=== PATIENT | female | born 1945 | race Caucasian/White ===

== ENCOUNTER 2018-05-16 20:24 | Emergency (ER) | payer BC, OTHER ==
[2018-05-16] MEDS ORDERED: METOCLOPRAMIDE 10 MG/2mL INJ ONE ×2 (21:23→21:46)
[2018-05-16] MEDS ORDERED: DIPHENHYDRAMINE 50 MG/ML VIAL ONE ×2 (21:23→21:46)
[2018-05-16] MEDS ORDERED: KETOROLAC 30 MG/ML INJ ONE (21:23)
--- NOTE | 2018-05-16 21:41 | RAD REPORT ---
EXAM DESCRIPTION: CT - Head Brain Wo Cont - 05/16/2018 9:36 pm CLINICAL HISTORY: Severe headache, photophobia COMPARISON: None. TECHNIQUE: Axial 5 mm thick images of the head were obtained without IV contrast. All CT scans are performed using dose optimization technique as appropriate and may include automated exposure control or mA/KV adjustment according to patient size. FINDINGS: No intracranial hemorrhage, mass, edema or shift of mid-line structures. No acute infarcti on changes seen. No abnormal extra-axial fluid collections. Ventricles are normal. Mastoid air cells and visualized portions of the paranasal sinuses are clear. No acute bony findings. IMPRESSION: Negative non-contrast CT head examination.
[2018-05-16] MEDS ORDERED: ONDANSETRON 4 MG/2 ML VIAL ONE (22:52)
[2018-05-16] MEDS ORDERED: FENTANYL CITR 100 MCG/2 ML ONE (22:52)
[2018-05-16] MEDS ORDERED: NA CHLORIDE 0.9% 1,000 ML ONE (23:02)
[2018-05-16] MEDS ORDERED: DEXAMETHASONE 10 MG/ML VIAL ONE (23:07)
[2018-05-16 23:25] LABS: Absolute Lymphocytes (CBC) 2.1 K/uL (0.7-4.9); Absolute Monocytes 0.8 K/uL (0.1-1.3); Absolute Neutrophil 4.6 K/uL (1.8-8.0); Basophils % 1.3 % (0-1.3); Eosinophils % 3.5 % (0-4.4); Hematocrit 35.3 % (36.0-45.0); Lymphocytes % 26.4 % (15.3-44.8); MCH 28.6 pg (27.0-35.0); MCV 85.6 fL (80-100); MPV 9.6 fL (7.6-11.3); RBC Red Blood Cell Count 4.13 M/uL (3.86-4.86)
[2018-05-16 23:39] LABS: BUN Blood Urea Nitrogen 17 mg/dL (7-18); Bicarbonate 24 mmol/L (21-32); C-Reactive Protein < 2.90 mg/L (<3.00); Glucose Level 88 mg/dL (74-106); Potassium 3.3 mmol/L (3.5-5.1); Sodium Level 135 mmol/L (136-145)
--- NOTE | 2018-05-17 02:11 | ER ---
Nurse's Notes [facility] Name: Stefany Guillen Age: 72 yrs Sex: Female : 1945 Arrival Date: 05/16/2018 Time: 20:29 Bed 28 Private MD: Diagnosis: Headache Presentation: 05/16 20:30 Presenting complaint: Patient states: Migraine headache, chills, photosensitivity- mb3 started aprox 2 to 3 hours ago, took her excedrin migraine and her cozaar within the last hour. Now states headache at 5/10 scale. Transition of care: patient was not received from another setting of care. Onset of symptoms was May 16, 2018 at 18:00. Risk Assessment: Do you want to hurt yourself or someone else? Patient reports no desire to harm self or others. Initial Sepsis Screen: Does the patient meet any 2 criteria? No. Patient's initial sepsis screen is negative. Does the patient have a suspected source of infection? No. Patient's initial sepsis screen is negative. Care prior to arrival: IV initiated. 20 GA, in the right antecubital area, Glucose check: 115. 20:30 Method Of Arrival: EMS: [facility] mb3 20:30 Acuity: HARJINDER 3 mb3 Triage Assessment: 20:35 Headache History: The patient has had previous headaches and this one is similar to mb3 previous episodes, and this one is more severe than previous episodes. General: Appears uncomfortable, well groomed, Behavior is cooperative, appropriate for age, anxious. Pain: Complains of pain in occipital area, left side of the back of head and right side of the back of head Pain does not radiate. Pain currently is 10 out of 10 on a pain scale. Pain began 2 hours ago. Pain: Also complains of photophobia, chills. EENT: No deficits noted. No signs and/or symptoms were reported regarding the EENT system. Neuro: Level of Consciousness is awake, alert, obeys commands, Oriented to person, place, time, situation, Appropriate for age. Cardiovascular: No deficits noted. Denies chest pain, Heart tones present Capillary refill < 3 seconds Patient's skin is warm and dry. Respiratory: Airway is patent Respiratory effort is even, unlabored, Respiratory pattern is regular, symmetrical, Breath sounds are clear bilaterally. GI: No deficits noted. No signs and/or symptoms were reported involving the gastrointestinal system. : No deficits noted. No signs and/or symptoms were reported regarding the genitourinary system. Musculoskeletal: No deficits noted. No signs and/or symptoms reported regarding the musculoskeletal system. Historical: - Allergies: 20:34 Amoxicillin; mb3 20:34 Sulfa (Sulfonamide Antibiotics); mb3 - Immunization history:: Adult Immunizations up to date. - Social history:: Smoking status: Patient/guardian denies using tobacco, never smoked. - Ebola Screening: : Patient denies travel to an Ebola-affected area in the 21 days before illness onset No symptoms or risks identified at this time. Screenin/22 00:44 Abuse screen: Denies threats or abuse. Nutritional screening: No deficits noted. mb3 Tuberculosis screening: No symptoms or risk factors identified. Fall Risk None identified. Assessment: 05/16 23:17 Reassessment: see triage assessment. General: Appears distressed, uncomfortable. Pain: mb3 Complains of pain in left parietal area, right parietal area and occipital area. 05/17 00:44 Reassessment: Patient appears in no apparent distress at this time. Patient and/or mb3 family updated on plan of care and expected duration. Pain level reassessed. Patient is alert, oriented x 3, equal unlabored respirations, skin warm/dry/pink. Patient states feeling better. Patient states symptoms have improved. Vital Signs: 05/16 20:34 BP 173 / 68; Pulse 74; Resp 24; Temp 97.6(O); Pulse Ox 97% on R/A; Weight 80.29 kg; 3 Height 5 ft. 2 in. (157.48 cm); Pain 10/10; 21:55 BP 159 / 83; Pulse 57; Resp 19; Pulse Ox 95% on R/A; mt 22:32 BP 161 / 87; Pulse 59; Resp 18; Pulse Ox 98% on R/A; mt 23:21 BP 144 / 68; Pulse 64; Resp 16; Pulse Ox 100% ; mb3 05/17 00:44 BP 137 / 62; Pulse 67; Resp 18; Pulse Ox 92% on R/A; mb3 05/16 20:34 Body Mass Index 32.37 (80.29 kg, 157.48 cm) 3 NIH Stroke Scale Scores: 02:07 NIHSS Score: 0 gs ED Course: 05/16 20:29 Patient arrived in ED. mb3 20:30 Gokul Mccoy, RN is Primary Nurse. mb3 20:33 Triage completed. mb3 21:05 Reilly Sorenson MD is Attending Physician. gs 21:[address] vr 21:30 Maintain EMS IV. Dressing intact. Site clean \T\ dry. Flushed right antecubital. mb3 21:35 CT completed. Patient tolerated procedure well. Patient moved back from CT. nj 21:36 CT Head Brain wo Cont In Process Unspecified. EDMS 22:42 Radiology exam delayed due to lab results not completed at this time. (BUN/Creatinine). nj 05/17 00:14 Head angio In Process Unspecified. EDMS 01:08 CT completed. Patient tolerated procedure well. Patient moved to CT via stretcher. Patient moved back from CT. 02:10 Jordi Garcia MD is Referral Physician. gs 02:32 Arm band placed on right wrist. mb3 02:34 No provider procedures requiring assistance completed. IV discontinued, intact, mb3 bleeding controlled, No redness/swelling at site. Pressure dressing applied. 02:35 Patient has correct armband on for positive identification. Placed in gown. Bed in low mb3 position. Call light in reach. Side rails up X 1. dust operator on. Pulse ox on. NIBP on. Administered Medications: 05/16 21:27 Drug: Reglan 5 mg Route: IVP; Site: right antecubital; mb3 23:03 Follow up: Response: No adverse reaction mb3 21:27 Drug: Benadryl 12.5 mg Route: IVP; Site: right antecubital; mb3 23:03 Follow up: Response: No adverse reaction mb3 21:27 Drug: TORadol 15 mg Route: IVP; Site: right antecubital; mb3 23:03 Follow up: Response: No adverse reaction mb3 21:44 Drug: Reglan 5 mg Route: IVP; Site: right antecubital; mb3 23:03 Follow up: Response: No adverse reaction mb3 21:44 Drug: Benadryl 12.5 mg Route: IVP; Site: right antecubital; mb3 23:04 Follow up: Response: No adverse reaction mb3 22:42 Drug: Zofran 4 mg Route: IVP; Site: right antecubital; mb3 05/17 02:32 Follow up: Response: No adverse reaction 3 05/16 22:42 Drug: fentaNYL (PF) 25 mcg Route: IVP; Site: right antecubital; mb3 05/17 02:32 Follow up: Response: No adverse reaction 3 05/16 23:04 Drug: NS 0.9% 750 ml Route: IV; Rate: 1 bolus; Site: right antecubital; mb3 05/17 02:31 Follow up: Response: No adverse reaction; IV Status: Completed infusion; IV Intake: mb3 750ml 05/16 23:09 Drug: Decadron - Dexamethasone 10 mg Route: IVP; Site: right antecubital; mb3 05/17 02:31 Follow up: Response: No adverse reaction mb3 Intake: 02:31 IV: 750ml; Total: 750ml. mb3 Outcome: 02:11 Discharge ordered by MD. 02:32 Discharged to home via wheelchair, with family. mb3 02:32 Condition: stable 02:32 Discharge instructions given to patient, family, Instructed on discharge instructions, follow up and referral plans. medication usage, Demonstrated understanding of instructions, follow-up care, medications, Prescriptions given X 2. 02:35 Patient left the ED. mb3 NIH Stroke Scale - NIH Stroke Score Date: 05/17/2018 Time: 02:07 Total Score = 0 1a. Level of Consciousness (LOC) - 0(Alert) 1b. Level of Consciousness (LOC) (Year \T\ Age) - 0(Both) 1c. LOC Commands (Open \T\ Closes Eyes/Diamond Driller Helper) - 0(Both) 2. Best Gaze (Lateral Gaze Paresis) - 0(Normal) 3. Visual Field Loss - 0(No visual loss) 4. Facial Palsy - 0(Normal) 5a. Left Arm: Motor (10-second hold) - 0(No drift) 5b. Right Arm: Motor (10-second hold) - 0(No drift) 6a. Left Leg: Motor (5-second hold - always test supine) - 0(No drift) 6b. Right Leg: Motor (5-second hold - always test supine) - 0(No drift) 7. Limb Ataxia (finger/nose \T\ heel/goldman - test with eyes open) - 0(Absent) 8. Sensory Loss (pinprick arms/legs/face) - 0(Normal) 9. Best Language: Aphasia (description/naming/reading) - 0(No aphasia) 10. Dysarthria (speech clarity - read or repeat words) - 0(Normal) 11. Extinction and Inattention (visual/tactile/auditory/spatial/personal) - 0(No abnormality) Initials: Signatures: Dispatcher [employer] Adrian Valencia, Randee Pritchard, Pascual Taylor, Reilly Mccormick mt, MD MD Gokul Mccoy RN RN mb3
--- NOTE | 2018-05-17 02:12 | EDPHYS ---
Physician Documentation [facility] Name: Stefany Guillen Age: 72 yrs Sex: Female : 1945 Arrival Date: 05/16/2018 Time: 20:29 Bed 28 Private MD: ED Physician Reilly Sorenson HPI: 05/17 02:07 This 72 yrs old Female presents to ER via EMS with complaints of Headache > gs 24hrs Old. 02:07 The patient complains of pain to the left occipital area. The patient describes the gs headache as pounding, sharp. Onset: The symptoms/episode began/occurred gradually. Associated signs and symptoms: Pertinent positives: nausea. Severity of symptoms: At its worst the pain was incapacitating, "never this severe". Headache History: The patient has had previous headaches and this one is similar to previous episodes, and this one is more severe than previous episodes. The symptoms are alleviated by nothing. the symptoms are aggravated by nothing. The patient has experienced similar episodes in the past, a few times. Historical: - Allergies: 05/16 20:34 Amoxicillin; mb3 20:34 Sulfa (Sulfonamide Antibiotics); mb3 - Immunization history:: Adult Immunizations up to date. - Social history:: Smoking status: Patient/guardian denies using tobacco, never smoked. - Ebola Screening: : Patient denies travel to an Ebola-affected area in the 21 days before illness onset No symptoms or risks identified at this time. ROS: 05/17 02:07 All other systems are negative. gs Exam: 02:07 Head/Face: Normocephalic, atraumatic. Eyes: Pupils equal round and reactive to light, gs extra-ocular motions intact. Lids and lashes normal. Conjunctiva and sclera are non-icteric and not injected. Cornea within normal limits. Periorbital areas with no swelling, redness, or edema. ENT: Nares patent. No nasal discharge, no septal abnormalities noted. Tympanic membranes are normal and external auditory canals are clear. Oropharynx with no redness, swelling, or masses, exudates, or evidence of obstruction, uvula midline. Mucous membranes moist. Neck: Trachea midline, no thyromegaly or masses palpated, and no cervical lymphadenopathy. Supple, full range of motion without nuchal rigidity, or vertebral point tenderness. No Meningismus. Chest/axilla: Normal chest wall appearance and motion. Nontender with no deformity. No lesions are appreciated. Cardiovascular: Regular rate and rhythm with a normal S1 and S2. No gallops, murmurs, or rubs. Normal PMI, no JVD. No pulse deficits. Respiratory: Lungs have equal breath sounds bilaterally, clear to auscultation and percussion. No rales, rhonchi or wheezes noted. No increased work of breathing, no retractions or nasal flaring. Abdomen/GI: Soft, non-tender, with normal bowel sounds. No distension or tympany. No guarding or rebound. No evidence of tenderness throughout. Back: No spinal tenderness. No costovertebral tenderness. Full range of motion. Skin: Warm, dry with normal turgor. Normal color with no rashes, no lesions, and no evidence of cellulitis. MS/ Extremity: Pulses equal, no cyanosis. Neurovascular intact. Full, normal range of motion. 02:07 Constitutional: The patient appears alert, awake, uncomfortable. 02:07 Neuro: Orientation: is normal, Mentation: is normal, Memory: is normal, Cranial nerves: grossly normal, Cerebellar function: normal finger to nose testing, Motor: moves all fours, strength is normal, Sensation: no acute changes. Vital Signs: 05/16 20:34 BP 173 / 68; Pulse 74; Resp 24; Temp 97.6(O); Pulse Ox 97% on R/A; Weight 80.29 kg; mb3 Height 5 ft. 2 in. (157.48 cm); Pain 10/10; 21:55 BP 159 / 83; Pulse 57; Resp 19; Pulse Ox 95% on R/A; mt 22:32 BP 161 / 87; Pulse 59; Resp 18; Pulse Ox 98% on R/A; mt 23:21 BP 144 / 68; Pulse 64; Resp 16; Pulse Ox 100% ; mb3 05/17 00:44 BP 137 / 62; Pulse 67; Resp 18; Pulse Ox 92% on R/A; mb3 05/16 20:34 Body Mass Index 32.37 (80.29 kg, 157.48 cm) mb3 NIH Stroke Scale Scores: 02:07 NIHSS Score: 0 gs MDM: 05/16 21:18 Patient medically screened. 05/17 02:07 Differential diagnosis: hypertensive headache, subarachnoid bleed, tension headache, gs vasomotor headache. Data reviewed: vital signs, nurses notes. Response to treatment: the patient's symptoms have markedly improved after treatment, and as a result, I will discharge patient. ED course: pt concerned about aneurysm requests imaging. 05/16 22:35 Order name: CBC with Diff; Complete Time: 23:40 05/16 22:35 Order name: BMP; Complete Time: 23:40 05/16 21:19 Order name: CT Head Brain wo Cont; Complete Time: 21:42 05/16 22:35 Order name: CRP; Complete Time: 23:40 05/16 22:35 Order name: Head angio EDMS Administered Medications: 05/16 21:27 Drug: Reglan 5 mg Route: IVP; Site: right antecubital; mb3 23:03 Follow up: Response: No adverse reaction mb3 21:27 Drug: Benadryl 12.5 mg Route: IVP; Site: right antecubital; mb3 23:03 Follow up: Response: No adverse reaction mb3 21:27 Drug: TORadol 15 mg Route: IVP; Site: right antecubital; mb3 23:03 Follow up: Response: No adverse reaction mb3 21:44 Drug: Reglan 5 mg Route: IVP; Site: right antecubital; mb3 23:03 Follow up: Response: No adverse reaction mb3 21:44 Drug: Benadryl 12.5 mg Route: IVP; Site: right antecubital; mb3 23:04 Follow up: Response: No adverse reaction mb3 22:42 Drug: Zofran 4 mg Route: IVP; Site: right antecubital; mb3 05/17 02:32 Follow up: Response: No adverse reaction mb3 05/16 22:42 Drug: fentaNYL (PF) 25 mcg Route: IVP; Site: right antecubital; mb3 05/17 02:32 Follow up: Response: No adverse reaction mb3 05/16 23:04 Drug: NS 0.9% 750 ml Route: IV; Rate: 1 bolus; Site: right antecubital; mb3 05/17 02:31 Follow up: Response: No adverse reaction; IV Status: Completed infusion; IV Intake: mb3 750ml 05/16 23:09 Drug: Decadron - Dexamethasone 10 mg Route: IVP; Site: right antecubital; mb3 05/17 02:31 Follow up: Response: No adverse reaction mb3 Disposition: 05/17/18 02:11 Discharged to Home. Impression: Headache. - Condition is Stable. - Discharge Instructions: General Headache Without Cause. - Prescriptions for Fiorinal 50- 325-40 mg Oral Capsule - take 1 capsule by ORAL route every 4 hours As needed - not to exceed 6 capsules per day; 20 capsule. Prednisone 20 mg Oral Tablet - take 1 tablet by ORAL route once daily for 5 days; 5 tablet. - Medication Reconciliation Form, Thank You Letter, Antibiotic Education, Prescription Opioid Use form. - Follow up: Jordi Garcia MD; When: 2 - 3 days; Reason: Re-evaluation by your physician. NIH Stroke Scale - NIH Stroke Score Date: 05/17/2018 Time: 02:07 Total Score = 0 1a. Level of Consciousness (LOC) - 0(Alert) 1b. Level of Consciousness (LOC) (Year \\T\\ Age) - 0(Both) 1c. LOC Commands (Open \\T\\ Closes Eyes/Grinder Tender) - 0(Both) 2. Best Gaze (Lateral Gaze Paresis) - 0(Normal) 3. Visual Field Loss - 0(No visual loss) 4. Facial Palsy - 0(Normal) 5a. Left Arm: Motor (10-second hold) - 0(No drift) 5b. Right Arm: Motor (10-second hold) - 0(No drift) 6a. Left Leg: Motor (5-second hold - always test supine) - 0(No drift) 6b. Right Leg: Motor (5-second hold - always test supine) - 0(No drift) 7. Limb Ataxia (finger/nose \\T\\ heel/goldman - test with eyes open) - 0(Absent) 8. Sensory Loss (pinprick arms/legs/face) - 0(Normal) 9. Best Language: Aphasia (description/naming/reading) - 0(No aphasia) 10. Dysarthria (speech clarity - read or repeat words) - 0(Normal) 11. Extinction and Inattention (visual/tactile/auditory/spatial/personal) - 0(No abnormality) Initials: Signatures: Dispatcher [employer] Reilly Calderón MD MD Mccoy, Gokul, RN RN mb3 Corrections: (The following items were deleted from the chart) 02:35 02:11 05/17/2018 02:11 Discharged to Home. Impression: Headache. Condition is mb3 Stable. Forms are Medication Reconciliation Form, Thank You Letter, Antibiotic Education, Prescription Opioid Use. Follow up: Jordi Garcia; When: 2 - 3 days; Reason: Re-evaluation by your physician. gs
--- NOTE | 2018-05-17 10:20 | RAD REPORT ---
EXAM DESCRIPTION: CTHead angio05/17/2018 4:27 am CLINICAL HISTORY: Visual disturbance COMPARISON: Head CT May 16, 2018 TECHNIQUE: CT angiogram of the head was obtained. 50 cc Isovue 370 was intravenously. Coronal and sa gittal reconstruction was performed. MIP 3D reconstruction was performed All CT scans are performed using dose optimization technique as appropriate and may include automated exposure control or mA/KV adjustment according to patient size. FINDINGS: The basilar, internal carotid, anterior cerebral, middle cerebral and posterior cerebral a rteries are normal caliber. An aneurysm is not seen. Mild atherosclerotic disease involves the distal internal carotid arteries A significant stenosis is not noted. IMPRESSION: Unremarkable CT angiogram head.
== END 2018-05-17 02:35 | disposition home or self-care (01) ==
LOC: ER 20:24
DX: R51 Headache (principal); Z88.1 Allergy status to other antibiotic agents; Z88.2 Allergy status to sulfonamides
CPT/HCPCS: 36415; 70450; 70496; 80048; 85025; 86140; 96361; 96374; 96375; 99285; J1100; J2405; J2765 ×2; J3010; J7030; Q9967

== ENCOUNTER 2019-11-04 16:52 | Emergency (ER) | payer OTHER ==
--- NOTE | 2019-11-04 17:53 | RAD REPORT ---
EXAM DESCRIPTION: CT - Head C Spine Mpr Wo Con - 11/04/2019 5:23 pm CLINICAL HISTORY: Head and neck injury status post fall. Head and neck pain COMPARISON: 2018 TECHNIQUE: Computed axial tomography of the head and cervical spine was obtained. Sagittal and coronal reconstruction was performed. All CT scans are performed using dose optimization technique as appropriate and may include automated exposure control or mA/KV adjustment according to patient size. FINDINGS: Right frontal scalp hematoma. No underlying fracture. An intracranial bleed is not seen. The ventricles are normal in caliber. An extra-axial fluid collect ion is not noted.Fluid within the visualized sinuses and mastoids is not seen A cervical fracture is not visualized. No dislocation is noted. Spondylosis involves the cervical spi ne IMPRESSION: No acute intracranial abnormality is seen. A cervical fracture is not visualized. If the patient continues to have symptoms to suggest intracra nial /spinal cord pathology then MRI would be recommended
--- NOTE | 2019-11-04 17:56 | ER ---
Nurse's Notes [facility] Name: Stefany Guillen Age: 74 yrs Sex: Female : 1945 Arrival Date: 11/04/2019 Time: 16:55 Bed 17 Private MD: Diagnosis: Fall (on) (from) unspecified stairs and steps;Superficial injury of head Presentation: 11/04 16:55 Presenting complaint: EMS states: pt was standing on 3 step ladder, lost her balance, tw2 fell off and landed on her bottom first then slammed the back of her head into the ground, denies LOC, pt is not on blood thinners, vs stable. Transition of care: patient was not received from another setting of care. Onset of symptoms was November 04, 2019. Risk Assessment: Do you want to hurt yourself or someone else? Patient reports no desire to harm self or others. Initial Sepsis Screen: Does the patient meet any 2 criteria? No. Patient's initial sepsis screen is negative. Does the patient have a suspected source of infection? No. Patient's initial sepsis screen is negative. Care prior to arrival: None. 16:55 Method Of Arrival: EMS: [facility] tw2 16:55 Acuity: HARJINDER 4 tw2 Triage Assessment: 16:55 General: Appears in no apparent distress. obese, well groomed, Behavior is calm, tw2 cooperative, appropriate for age. Pain: Complains of pain in right occipital area and scalp. Historical: - Allergies: 17:02 Amoxicillin; tw2 17:02 Sulfa (Sulfonamide Antibiotics); tw2 - Immunization history:: Adult Immunizations. - Social history:: Smoking status: . - Ebola Screening: : Patient denies travel to an Ebola-affected area in the 21 days before illness onset. Screenin:04 Abuse screen: Denies threats or abuse. Nutritional screening: No deficits noted. tw2 Tuberculosis screening: No symptoms or risk factors identified. Fall Risk Secondary diagnosis (15 points) impaired mobility. Assessment: 18:20 General: Appears uncomfortable, Behavior is calm, cooperative, appropriate for age. tr5 Pain: Complains of pain in scalp. Neuro: Level of Consciousness is awake, alert, obeys commands, Oriented to person, place, time, Ice Skating Teacher are equal bilaterally Moves all extremities. Cardiovascular: Heart tones present Capillary refill < 3 seconds Pulses are all present. Respiratory: Airway is patent Respiratory effort is even, unlabored, Respiratory pattern is regular, symmetrical. GI: No signs and/or symptoms were reported involving the gastrointestinal system. : No signs and/or symptoms were reported regarding the genitourinary system. EENT: No signs and/or symptoms were reported regarding the EENT system. Derm: No signs and/or symptoms reported regarding the dermatologic system. Musculoskeletal: No signs and/or symptoms reported regarding the musculoskeletal system. Vital Signs: 17:01 BP 156 / 84; Pulse 66; Resp 17; Temp 98.1(O); Pulse Ox 99% on R/A; Weight 90.72 kg (R); tw2 Pain 8/10; 17:56 BP 139 / 66; Pulse 63; Resp 17; Temp 97.9(O); Pulse Ox 97% on R/A; mh5 ED Course: 16:55 Patient arrived in ED. kb 16:55 [facility] kb 16:55 Gerber Zamarripa MD is Attending Physician. kb 16:55 Bed in low position. Call light in reach. tw2 17:00 Triage completed. tw2 17:00 Arm band placed on. tw2 17:23 CT Head C Spine In Process Unspecified. EDMS 18:09 Kareem Mckeon, HEBERT is Primary Nurse. tr5 18:23 No provider procedures requiring assistance completed. Patient did not have IV access tr5 during this emergency room visit. Administered Medications: 18:22 Drug: Ibuprofen 800 mg Route: PO; tr5 Outcome: 17:56 Discharge ordered by MD. kb 18:23 Discharged to home ambulatory. tr5 18:23 Condition: stable 18:23 Discharge instructions given to patient, Instructed on discharge instructions, follow up and referral plans. Demonstrated understanding of instructions, follow-up care. 18:32 Patient left the ED. tr5 Signatures: Dispatcher [employer] EDMS Marj Uriostegui FNP-C FNP-Ckb Wise, Tara RN RN tw2 Ninfa Palmer Kareem Antunez RN RN tr5 Corrections: (The following items were deleted from the chart) 18:11 17:56 Pulse 63bpm; Resp 17bpm; Pulse Ox 97% RA; Temp 97.9F Oral; mh5 mh5
--- NOTE | 2019-11-04 17:56 | EDPHYS ---
Physician Documentation [facility] Name: Stefany Guillen Age: 74 yrs Sex: Female : 1945 Arrival Date: 11/04/2019 Time: 16:55 Bed 17 Private MD: ED Physician Gerber Zamarripa HPI: 11/04 16:58 This 74 yrs old Female presents to ER via Unassigned with complaints of fall, kb head injury. 16:58 Details of fall: The patient fell from a height, step stool. Onset: The kb symptoms/episode began/occurred just prior to arrival. Associated injuries: The patient sustained injury to the head, hematoma, pain. Severity of symptoms: At their worst the symptoms were moderate, in the emergency department the symptoms are unchanged. The patient has not experienced similar symptoms in the past. The patient has not recently seen a physician. 16:59 Pt reports she fell from step stool onto buttocks and hit the back of her head. Denies kb LOC. Reports pain in head only. Denies hip pain, tailbone pain. Moves all extremities without difficulty. Historical: - Allergies: 17:02 Amoxicillin; tw2 17:02 Sulfa (Sulfonamide Antibiotics); tw2 - Immunization history:: Adult Immunizations. - Social history:: Smoking status: . - Ebola Screening: : Patient denies travel to an Ebola-affected area in the 21 days before illness onset. ROS: 16:57 Constitutional: Negative for fever, chills, and weight loss, Eyes: Negative for injury, kb pain, redness, and discharge, ENT: Negative for injury, pain, and discharge, Neck: Negative for injury, pain, and swelling, Cardiovascular: Negative for chest pain, palpitations, and edema, Respiratory: Negative for shortness of breath, cough, wheezing, and pleuritic chest pain, Abdomen/GI: Negative for abdominal pain, nausea, vomiting, diarrhea, and constipation, Back: Negative for injury and pain, : Negative for injury, bleeding, discharge, and swelling, MS/Extremity: Negative for injury and deformity. 16:57 Skin: Positive for hematoma, of the scalp. 16:57 Neuro: Positive for headache. Exam: 16:57 Constitutional: This is a well developed, well nourished patient who is awake, alert, kb and in no acute distress. Eyes: Pupils equal round and reactive to light, extra-ocular motions intact. Lids and lashes normal. Conjunctiva and sclera are non-icteric and not injected. Cornea within normal limits. Periorbital areas with no swelling, redness, or edema. ENT: Nares patent. No nasal discharge, no septal abnormalities noted. Tympanic membranes are normal and external auditory canals are clear. Oropharynx with no redness, swelling, or masses, exudates, or evidence of obstruction, uvula midline. Mucous membranes moist. Neck: Trachea midline, no thyromegaly or masses palpated, and no cervical lymphadenopathy. Supple, full range of motion without nuchal rigidity, or vertebral point tenderness. No Meningismus. Chest/axilla: Normal chest wall appearance and motion. Nontender with no deformity. No lesions are appreciated. Cardiovascular: Regular rate and rhythm with a normal S1 and S2. No gallops, murmurs, or rubs. Normal PMI, no JVD. No pulse deficits. Respiratory: Lungs have equal breath sounds bilaterally, clear to auscultation and percussion. No rales, rhonchi or wheezes noted. No increased work of breathing, no retractions or nasal flaring. Abdomen/GI: Soft, non-tender, with normal bowel sounds. No distension or tympany. No guarding or rebound. No evidence of tenderness throughout. Back: No spinal tenderness. No costovertebral tenderness. Full range of motion. Skin: Warm, dry with normal turgor. Normal color with no rashes, no lesions, and no evidence of cellulitis. MS/ Extremity: Pulses equal, no cyanosis. Neurovascular intact. Full, normal range of motion. Neuro: Awake and alert, GCS 15, oriented to person, place, time, and situation. Cranial nerves II-XII grossly intact. Motor strength 5/5 in all extremities. Sensory grossly intact. Cerebellar exam normal. Normal gait. 16:57 Head/face: Noted is no obvious of injury or deformity except hematoma, that is moderate, of the right occipital area. Vital Signs: 17:01 BP 156 / 84; Pulse 66; Resp 17; Temp 98.1(O); Pulse Ox 99% on R/A; Weight 90.72 kg (R); tw2 Pain 8/10; 17:56 BP 139 / 66; Pulse 63; Resp 17; Temp 97.9(O); Pulse Ox 97% on R/A; mh5 MDM: 16:55 Patient medically screened. kb 16:57 Data reviewed: vital signs, nurses notes. Data interpreted: Pulse oximetry: on room air kb is 100 %. Interpretation: normal. 17:55 Counseling: I had a detailed discussion with the patient and/or guardian regarding: the kb historical points, exam findings, and any diagnostic results supporting the discharge/admit diagnosis, radiology results, the need for outpatient follow up, a family practitioner, to return to the emergency department if symptoms worsen or persist or if there are any questions or concerns that arise at home. 11/04 16:56 Order name: CT Head C Spine; Complete Time: 17:56 kb Administered Medications: 18:22 Drug: Ibuprofen 800 mg Route: PO; tr5 Disposition: 18:36 Co-signature as Attending Physician, Gerber Zamarripa MD. rn Disposition: 11/04/19 17:56 Discharged to Home. Impression: Fall (on) (from) unspecified stairs and steps, Superficial injury of head. - Condition is Stable. - Discharge Instructions: Hematoma, [id number], Head Injury, Adult, [id number]. - Medication Reconciliation Form, Thank You Letter, Antibiotic Education, Prescription Opioid Use form. - Follow up: Emergency Department; When: As needed; Reason: Worsening of condition. Follow up: Private Physician; When: 2 - 3 days; Reason: Recheck today's complaints, Continuance of care, Re-evaluation by your physician. Signatures: Dispatcher [employer] EDAL Marj Uriostegui, COMMUNICATIONS SYSTEMS ENGINEER-C COMMUNICATIONS SYSTEMS ENGINEER-Ckb Gerber Zamarripa MD MD rn Wise, Tara, RN RN 2 Kareem Mckeon RN RN tr5 Corrections: (The following items were deleted from the chart) 18:32 17:56 11/04/2019 17:56 Discharged to Home. Impression: Fall (on) (from) unspecified tr5 stairs and steps; Superficial injury of head. Condition is Stable. Forms are Medication Reconciliation Form, Thank You Letter, Antibiotic Education, Prescription Opioid Use. Follow up: Emergency Department; When: As needed; Reason: Worsening of condition. Follow up: Private Physician; When: 2 - 3 days; Reason: Recheck today's complaints, Continuance of care, Re-evaluation by your physician. kb
[2019-11-04] MEDS ORDERED: IBUPROFEN 400 MG TAB ONE (18:14)
[2019-11-04 20:17] VITALS: BP 139/66; TEMP 97.9; O2SAT 97
== END 2019-11-04 18:32 | disposition home or self-care (01) ==
LOC: ER 16:52
DX: S00.90XA Unspecified superficial injury of unspecified part of head, initial encounter (principal); W10.8XXA Fall (on) (from) other stairs and steps, initial encounter; Y93.89 Activity, other specified; Y92.9 Unspecified place or not applicable; Z88.1 Allergy status to other antibiotic agents; Z88.2 Allergy status to sulfonamides
CPT/HCPCS: 70450; 72125; 99283

== ENCOUNTER 2022-07-13 06:45 | Day surgery (SDC) | payer OTHER ==
--- NOTE | 2022-07-10 15:14 | RAD REPORT ---
EXAM DESCRIPTION: Analy Gant (2 Views)07/10/2022 2:33 pm CLINICAL HISTORY: Preop for cardiac catheterization COMPARISON: 2019 FINDINGS: The lungs appear clear of acute infiltrate. The heart is normal size IMPRESSION: No acute abnormalities displayed
[2022-07-10 15:19] LABS: Protime INR 1.03
[2022-07-10 15:24] LABS: SARS-CoV-2 Antigen Rapid Res Negative (Negative)
[2022-07-10 15:25] LABS: Absolute Lymphocytes (CBC) 1.6 K/uL (0.7-4.9); Hematocrit 35.7 % (36.0-45.0); Lymphocytes % 21.3 % (15.3-44.8); MCV 84.7 fL (80-100); MPV 8.4 fL (7.6-11.3); RBC Red Blood Cell Count 4.22 M/uL (3.86-4.86)
[2022-07-10 15:30] LABS: Potassium 4.4 mmol/L (3.5-5.1)
--- NOTE | 2022-07-11 08:14 | EKG ---
Test Date: 2022-07-10 Test Time: 14:08:25 Engagement Engineer: DEWAYNE MEASUREMENT RESULTS: Intervals: Rate: 58 UT: 174 QRSD: 84 QT: 414 QTc: 406 [place]: P: 42 UT: 174 QRS: -3 T: 56 INTERPRETIVE STATEMENTS: Sinus bradycardia Cannot rule out Anterior infarct, age undetermined Abnormal ECG Compared to ECG 01/23/2002 09:01:00 Sinus rhythm no longer present Myocardial infarct finding still present Electronically Signed On 07-11-22 08:11:10 CDT by Damon Villalobos
[~2022-07-13 06:45] MED LIST: HEPA 1000U/500MLS 2,000 UNIT/1,000 ML BAG IV ONE; LIDOCAINE 1% MPF 30 ML VIAL ONE
[2022-07-13] MEDS ORDERED: MIDAZOLAM HCL 2 MG/2 ML INJ ONE (06:53)
[2022-07-13] MEDS ORDERED: NA CHLORIDE 0.9% 0 ML IV ONE (06:53)
[2022-07-13] MEDS ORDERED: FENTANYL CITR 100 MCG/2 ML ONE (06:53)
[2022-07-13] MEDS ORDERED: ATROPINE SULF 1 MG/10 ML SYR IV ONE (06:53)
[2022-07-13] MEDS ORDERED: NITROGLYCERIN/D5W 25 MG/250 ML BTL IV ONE (06:54)
[2022-07-13] MEDS ORDERED: NITROGLYCERIN 100 MCG/ML SYR (for cath lab use only) IV ONE (06:54)
[2022-07-13] MEDS ORDERED: NA CHLORIDE 0.9% 500 ML ONE (07:05)
[2022-07-13] MEDS ORDERED: ACETAMINOPHEN 325 MG TABLET ONE (09:41)
[2022-07-13 12:48] VITALS: BP 111/54; O2SAT 97
--- NOTE | 2022-07-13 12:59 | OP ---
Surgeon: Damon Villalobos MD Homoeopath: Ms. Tiffany Looney. Following the Angio-Seal, the patient will remain at bedrest for 4 hours and then she will go home an d I will see her in the office in the next 2 weeks. The patient admitted to my service on 07/13/2022 to the petroleum laboratory technician as an outpatient. She underwent lef t heart catheterization, selective coronary arteriogram, common femoral artery angiogram. Indication: Chest pain, abnormal stress test. Ms. Guillen is 76. Has history of dyslipidemia, hyper tension, chest pain, abnormal stress test. Procedure In Detail: Brought to the petroleum laboratory technician today as an outpatient, prepped and draped in routine s terile fashion. Given Versed and fentanyl for sedation stents. 10 cc of Xylocaine were used to anes thetize the right groin. A 6-[place] sheath introduced in the right common femoral artery successfull y using the Seldinger technique. Angiography there was normal. She did have a high takeoff of her p rofunda. Angio-Seal was used to close the case. Nuzhat catheter left and right were used to do the catheterization. She had a normal right coronary artery and normal circumflex. She was codominant. LAD showed a 20% stenosis right after the first septal. Total conscious sedation was 30 minutes. No complications. Blood loss was 5 cc. Postoperative Diagnosis: Mild coronary artery disease. Plan: For medical therapy. NICOLAS/CECILY Voice ID: [id number] Report ID: [id number]
== END 2022-07-13 11:40 | disposition home or self-care (01) ==
LOC: CCL 06:45
DX: I25.10 Atherosclerotic heart disease of native coronary artery without angina pectoris (principal); I10 Essential (primary) hypertension; E78.2 Mixed hyperlipidemia; E11.9 Type 2 diabetes mellitus without complications; K21.9 Gastro-esophageal reflux disease without esophagitis; E03.9 Hypothyroidism, unspecified; E66.9 Obesity, unspecified; Z68.35 Body mass index [BMI] 35.0-35.9, adult; Z79.84 Long term (current) use of oral hypoglycemic drugs; Z79.899 Other long term (current) drug therapy; Z20.822 Contact with and (suspected) exposure to COVID-19; Z82.49 Family history of ischemic heart disease and other diseases of the circulatory system
CPT/HCPCS: 93005; 85025; 80048; 36415; 85610; 82947; 85730; 71046; 93454; 87811; C1893; C1760; Q9967; G0269; J2250; J3010; J7040; J1644; J0583

== ENCOUNTER 2024-09-01 12:51 | Emergency (ER) | payer MEDICARE ==
--- OUTSIDE RECORDS SUMMARY | 2024-09-01 12:54 | XMS REPORT | Continuity of Care Document ---
Author Name Unknown Address [address] [facility] [address] [place] [address] [facility] thconnect Address [address] [facility] [address] [place] [address] Care Team Providers Care Concreting Supervisor Name Role Phone Jeanette Chatman MD Primary Care Physician Kriss Carrizales Attending Clinician Unavailable JEANETTE CHATMAN Attending Clinician Unamia ilable LAB90 Attending Clinician Unavailable Jeanette Chatman MD Attending Clinician [phone] [facility] Attending Clinicia n Unavailable Payers Payer Name Policy Type Policy Number Effective Date Expirati on Date Source MEDICARE-PART B 5 [id number] 2021 00:00:00 [employer] 2 [id number] 2022 00:00:00 FORMERLY [facility] [employer] (MEDICARE REPLACEMENT HMO) [id number] 2022 00:00:00 Problems Condition Name Condition Details Condition Category Status Onset Date Resolution Date Last Treatment Date Treating Clinician Comments Source Family history of coronary artery disease in father Family history of coronary artery disease in father Disease Active 02-16 00:00: 00 Kimmy Zayas Palpitatio ns - Not Controlled Palpitatio ns - Not Controlled Disease Active 02-16 00:00: 00 Kimmy Zayas Hyperlipid emia Hyperlipid emia Disease Active 02-16 00:00: 00 Kimmy Zayas Osteopenia of left hip - Unchanged Osteopenia of left hip - Unchanged Disease Active 02-16 00:00: 00 Kimmy Zayas [id number] Current mild episode of major depressive disorder without prior episode Problem [facility] [id number] Primary hypertensi on Problem [facility] [id number] Environmen vega allergies Problem [facility] [id number] Gastroesop hageal reflux disease with esophagiti s without hemorrhage Problem [facility] [id number] Acquired hypothyroi dism Problem [facility] [id number] Hx of diverticul itis of colon Problem [facility] [id number] Prediabete s Problem [facility] [id number] Migraine without aura and without status migrainosu s, not intractabl e Problem [facility] Comprehens crissy eye examinatio n (procedure ) Routine eye exam Problem [facility] [id number] Osteoporos is, postmenopa usal Problem [facility] [id number] Moderate mixed hyperlipid emia not requiring statin therapy Problem [facility] No known active problems No known active problems Disease Kimmy Zayas Social History Social Habit Start Date Stop Date Quantity Comments Source History of Tobacco Use [facility] Sex Assigned At [facility] Alcohol intake 2022-02-16 00:00:00 2022-02-16 00:00:00 Current drinker of alcohol (finding) Kimmy Zayas Tobacco use and exposure 2021-03-14 00:00:00 2021-03-14 00:00:00 Smokeless tobacco non-user Kimmy Zayas Smoking Status Start Date Stop Date Source Never Smoker [facility] Medications Ordered Medication Name Filled Medication Name Start Date Stop Date Current Medication? Ordering Clinician Indication Dosage Frequency Signature (SIG) Comments Components Source DiphenhydrA MINE (BENADRYL) 25 MG oral capsule 3-24 09:35: 39 Yes 25mg Q.25D Take 25 mg by mouth every 6 hours as needed for itching Kimmy Zayas Lutein 20 MG oral Capsule 3-24 09:35: 39 Yes 1{capsu le} Take 1 capsule by mouth daily Kimmy Zahngcristianrupinder DiphenhydrA MINE (Benadryl Allergy) 25 MG oral capsule 224 15:47: 36 Yes 25mg Q6H Take 25 mg by mouth every 6 hours as needed for itching Kimmy Zayas Lutein 20 MG oral Capsule 224 15:47: 36 Yes 1{capsu le} Take 1 capsule by mouth daily Kimmy devendra Escitalopra m Oxalate 10 MG oral Tablet 01-19 00:00: 00 Yes [id number] 10mg Take 1 tablet (10 mg total) by mouth daily Kimmy Zayas Lansoprazol e 30 MG oral Delayed Release Capsule 01-19 00:00: 00 Yes [id number] 30mg Take 1 capsule (30 mg total) by mouth daily Kimmy devendra Metformin HCl ER 500 MG oral TABLET SR 24 HR 01-19 00:00: 00 Yes [id number] 500mg Take 1 tablet (500 mg total) by mouth daily (with breakfast) Kimmy Zayas Metformin HCl ER 500 MG oral TABLET SR 24 HR 2020-11 1-04 00:00: 00 01-19 00:00 :00 No 500mg Take 1 tablet (500 mg total) by mouth daily (with breakfast) Kimmy Zayas Irbesartan 150 MG oral Tablet 31 00:00: 00 Yes 150mg Take 1 tablet (150 mg total) by mouth nightly Kimmy Zayas Escitalopra m Oxalate 5 MG oral Tablet 03-14 00:00: 00 01-19 00:00 :00 No 5mg Take 1 tablet (5 mg total) by mouth daily Kimmy Zayas Lansoprazol e 30 MG oral Tablet Delayed Release Dispersible 03-14 00:00: 00 01-19 00:00 :00 No 30mg Take 1 tablet (30 mg total) by mouth daily Kimmy Zayas Levothyroxi ne Sodium 88 MCG oral Tablet 03-14 00:00: 00 01-19 00:00 :00 No 88ug Take 1 tablet (88 mcg total) by mouth daily Kimmy Zayas Rosuvastati n Calcium 10 MG Rosuvastati n Calcium 10 MG No 1{table t} QD Rosuvastat in Calcium 10 MG Levothyroxi ne Sodium 88 MCG Levothyroxi ne Sodium 88 MCG No QD Levothyrox ine Sodium 88 MCG metFORMIN HCl 500 MG metFORMIN HCl 500 MG No 1{table t_with_ a_meal} QD metFORMIN HCl 500 MG Lutein 10 MG Lutein 10 MG No 1{table t_with_ a_meal} QD Lutein 10 MG Zinc Zinc No Zinc Irbesartan 150 MG Irbesartan 150 MG No 1{table t} QD Irbesartan 150 MG Escitalopra m Oxalate 10 MG Escitalopra m Oxalate 10 MG No 1{table t} QD Escitalopr am Oxalate 10 MG Benadryl Allergy 25 MG Benadryl Allergy 25 MG No 1{table t_at_be dtime_a s_neede d} QD Benadryl Allergy 25 MG Lansoprazol e 30 MG Lansoprazol e 30 MG No 1{capsu le_befo re_a_me al} QD Lansoprazo le 30 MG Vitamin D3 50 MCG (1999 UT) Vitamin D3 50 MCG (1999 UT) No 1{table t} QD Vitamin D3 50 MCG (1999 UT) HYDROcodone -Acetaminop hen 7.5-325 MG HYDROcodone -Acetaminop hen 7.5-325 MG No HYDROcodon e-Acetamin ophen 7.5-325 MG valACYclovi r HCl 1 GM valACYclovi r HCl 1 GM No valACYclov ir HCl 1 GM Gabapentin 300 MG Gabapentin 300 MG No Gabapentin 300 MG Magnesium 400 MG Magnesium 400 MG No Magnesium 400 MG Immunizations Ordered Immunization Name Filled Immunization Name Date Status Comments Source Tdap- (Boostrix, Adacel) 2018-09-05 00:00:00 Completed Kimmy Zayas Influenza Virus Vaccine, age 6 months and up 2018-09-05 00:00:00 Completed Kimmy Zayas Tdap- (Boostrix, Adacel) 2018-09-05 00:00:00 Completed Kimmy Zayas Influenza Virus Vaccine, age 6 months and up 2018-09-05 00:00:00 Completed Kimmy Zhangcristianrupinder Prevnar 20 (PCV20) Prevnar 20 (PCV20) Unknown Completed [facility] Prevnar 20 (PCV20) Prevnar 20 (PCV20) Unknown Completed [facility] Prevnar 20 (PCV20) Prevnar 20 (PCV20) Unknown Completed [facility] Prevnar 20 (PCV20) Prevnar 20 (PCV20) Unknown Completed [facility] Prevnar 20 (PCV20) Prevnar 20 (PCV20) Unknown Completed [facility] Prevnar 20 (PCV20) Prevnar 20 (PCV20) Unknown Completed [facility] Prevnar 20 (PCV20) Prevnar 20 (PCV20) Unknown Completed [facility] Prevnar 20 (PCV20) Prevnar 20 (PCV20) Unknown Completed [facility] Prevnar 20 (PCV20) Prevnar 20 (PCV20) Unknown Completed [facility] Prevnar 20 (PCV20) Prevnar 20 (PCV20) Unknown Completed [facility] Prevnar 20 (PCV20) Prevnar 20 (PCV20) Unknown Completed [facility] Prevnar 20 (PCV20) Prevnar 20 (PCV20) Unknown Completed [facility] Prevnar 20 (PCV20) Prevnar 20 (PCV20) Unknown Completed [facility] Prevnar 20 (PCV20) Prevnar 20 (PCV20) Unknown Completed [facility] Prevnar 20 (PCV20) Prevnar 20 (PCV20) Unknown Completed [facility] Vital Signs Vital Name Observation Time Observation Value Comments S ource height 2024-06-05 13:00:00 61.3 [in_i] Comm on [facility] weight 2024-06-05 13:00:00 184.0 [lb_av] Co mmon [facility] temperature 2024-06-05 13:00:00 96.8 [degF] Com [facility] bmi 2024-06-05 13:00:00 34.42 kg/m2 Comm on [facility] oximetry 2024-06-05 13:00:00 95 % Commo n [facility] respiratory rate 2024-06-05 13:00:00 16 /min Common [facility] height 2024-04-14 15:20:00 61.3 [in_i] Comm on [facility] weight 2024-04-14 15:20:00 184.0 [lb_av] Co mmon [facility] temperature 2024-04-14 15:20:00 97.2 [degF] Com [facility] bmi 2024-04-14 15:20:00 34.42 kg/m2 Comm on [facility] oximetry 2024-04-14 15:20:00 97 % Commo n [facility] respiratory rate 2024-04-14 15:20:00 16 /min [facility] blood pressure systolic 2024-04-14 15:20:00 134 mm[Hg] Common [facility] blood pressure diastolic 2024-04-14 15:20:00 65 mm[Hg] [facility] height 2024-04-14 15:20:00 61.3 [in_i] Comm on [facility] weight 2024-04-14 15:20:00 184.0 [lb_av] Co mmon [facility] temperature 2024-04-14 15:20:00 97.2 [degF] Com [facility] bmi 2024-04-14 15:20:00 34.42 kg/m2 Comm on [facility] oximetry 2024-04-14 15:20:00 97 % Commo n [facility] respiratory rate 2024-04-14 15:20:00 16 /min [facility] blood pressure systolic 2024-04-14 15:20:00 134 mm[Hg] [facility] blood pressure diastolic 2024-04-14 15:20:00 65 mm[Hg] [facility] height 2023-09-26 14:40:00 61.3 [in_i] Comm on [facility] weight 2023-09-26 14:40:00 180.2 [lb_av] Co mmon [facility] temperature 2023-09-26 14:40:00 97.2 [degF] Com mon [facility] bmi 2023-09-26 14:40:00 33.71 kg/m2 Comm on [facility] oximetry 2023-09-26 14:40:00 98 % Commo n [facility] respiratory rate 2023-09-26 14:40:00 16 /min [facility] blood pressure systolic 2023-09-26 14:40:00 132 mm[Hg] [facility] blood pressure diastolic 2023-09-26 14:40:00 84 mm[Hg] Common [facility] height 2023-04-16 11:00:00 61.3 [in_i] Comm on [facility] weight 2023-04-16 11:00:00 181.4 [lb_av] Co mmon [facility] temperature 2023-04-16 11:00:00 98.1 [degF] Com mon [facility] bmi 2023-04-16 11:00:00 33.94 kg/m2 Comm on [facility] oximetry 2023-04-16 11:00:00 97 % Commo n [facility] respiratory rate 2023-04-16 11:00:00 17 /min Common [facility] blood pressure systolic 2023-04-16 11:00:00 138 mm[Hg] [facility] blood pressure diastolic 2023-04-16 11:00:00 68 mm[Hg] [facility] height 2023-04-16 11:40:00 61.3 [in_i] Comm on [facility] weight 2023-04-16 11:40:00 181.4 [lb_av] Co mmon [facility] temperature 2023-04-16 11:40:00 98.1 [degF] Com mon [facility] bmi 2023-04-16 11:40:00 33.94 kg/m2 Comm on [facility] oximetry 2023-04-16 11:40:00 97 % Commo n [facility] respiratory rate 2023-04-16 11:40:00 17 /min [facility] blood pressure systolic 2023-04-16 11:40:00 138 mm[Hg] [facility] blood pressure diastolic 2023-04-16 11:40:00 68 mm[Hg] [facility] Systolic blood pressure 2022-02-16 14:30:00 138 mm[Hg] Kimmy Seybo ld Diastolic blood pressure 2022-02-16 14:30:00 62 mm[Hg] Kimmy Seybo ld Heart rate 2022-02-16 14:30:00 71 /min Kelse y Seybold Body temperature 2022-02-16 14:30:00 36.17 Janice Kimmy Seybold Respiratory rate 2022-02-16 14:30:00 16 /min Kimmy ybold Body height 2022-02-16 14:30:00 157.5 cm Bel ey Seybold Body weight 2022-02-16 14:30:00 87.091 kg Bel ey Seybold BMI 2022-02-16 14:30:00 35.12 kg/m2 Bel ey Seybold Systolic blood pressure 2022-01-19 21:43:00 136 mm[Hg] Kimmy Seybo ld Diastolic blood pressure 2022-01-19 21:43:00 72 mm[Hg] Kimmy Seybo ld Heart rate 2022-01-19 21:43:00 73 /min Kelse y Seybold Body temperature 2022-01-19 21:43:00 36.56 Janice Kimmy Zayas Respiratory rate 2022-01-19 21:43:00 14 /min Kimmy Zayas Body height 2022-01-19 21:43:00 157.5 cm Bel Zayas Body weight 2022-01-19 21:43:00 85.276 kg Bel Zayas BMI 2022-01-19 21:43:00 34.39 kg/m2 Bel Zayas Encounters Start Date/Time End Date/Time Encounter Type Admission Type Attending [facility] Care Department Encounter ID Source 2024-08-14 10:00:00 Outpatient Kriss Carrizales STLMLC STLMLC [id number] [facility] 2024-06-05 08:51:00 Outpatient Kriss Carrizales STLMLC STLMLC [id number] [facility] 2024-04-10 09:13:00 Outpatient Kriss Carrizales STLMLC STLMLC [id number] [facility] 2024-02-11 13:17:00 Outpatient Kriss Carrizales STLMLC STLMLC [id number] [facility] 2023-09-26 07:40:00 Outpatient Kriss Carrizales STLMLC STLMLC [id number] [facility] 2023-08-09 08:03:00 Outpatient Kriss Carrizales STLMLC STLMLC [id number] [facility] 2023-04-16 10:54:13 Outpatient Kriss Carrizales STLMLC STLMLC [id number] [facility] 2024-08-06 00:00:00 2024-08-06 00:00:00 (TEL) STLMLC STLMLC [id number] [facility] 2024-08-02 00:00:00 2024-08-02 00:00:00 (TEL) STLMLC STLMLC [id number] [facility] 2024-06-19 00:00:00 2024-06-19 00:00:00 (TEL) STLMLC STLMLC [id number] [facility] 2024-06-05 00:00:00 2024-06-05 00:00:00 OFFICE VISIT ESTAB PT LEVEL 3 STLMLC STLMLC [id number] [facility] 2024-04-14 00:00:00 2024-04-14 00:00:00 SUB ANNUAL [facility] WELLNESS VISIT STLMLC STLMLC [id number] [facility] 2024-04-14 00:00:00 2024-04-14 00:00:00 OFFICE VISIT ESTAB PT LEVEL 4 STLMLC STLMLC [id number] [facility] 2024-04-04 00:00:00 2024-04-04 00:00:00 (TEL) STLMLC STLMLC [id number] [facility] 2024-04-04 00:00:00 2024-04-04 00:00:00 (TEL) STLMLC STLMLC [id number] [facility] 2024-02-28 00:00:00 2024-02-28 00:00:00 (TEL) STLMLC STLMLC [id number] [facility] 2024-01-02 00:00:00 2024-01-02 00:00:00 (TEL) STLMLC STLMLC [id number] [facility] 2023-12-20 00:00:00 2023-12-20 00:00:00 (TEL) STLMLC STLMLC [id number] [facility] 2023-09-26 00:00:00 2023-09-26 00:00:00 OFFICE VISIT ESTAB PT LEVEL 3 STLMLC STLMLC [id number] [facility] 2023-09-13 00:00:00 2023-09-13 00:00:00 (TEL) STLMLC STLMLC [id number] [facility] 2023-08-13 00:00:00 2023-08-13 00:00:00 (TEL) STLMLC STLMLC [id number] [facility] 2023-08-02 00:00:00 2023-08-02 00:00:00 (TEL) STLMLC STLMLC [id number] [facility] 2023-06-19 00:00:00 2023-06-19 00:00:00 Outpatient JEANETTE CHATMAN [id number] [facility] 2023-05-16 00:00:00 2023-05-16 00:00:00 (TEL) STLMLC STLMLC [id number] [facility] 2023-05-10 00:00:00 2023-05-10 00:00:00 (TEL) STLMLC STLMLC [id number] [facility] 2023-04-18 00:00:00 2023-04-18 00:00:00 (TEL) STLMLC STLMLC [id number] [facility] 2023-04-16 00:00:00 2023-04-16 00:00:00 SUB ANNUAL [facility] WELLNESS VISIT STLMLC STLMLC [id number] [facility] 2023-04-16 00:00:00 2023-04-16 00:00:00 OFFICE VISIT ESTAB PT LEVEL 4 STLMLC STLMLC [id number] [facility] 2023-03-30 00:00:00 2023-03-30 00:00:00 Outpatient DMG DMG [id number] [facility] 2023-02-19 00:00:00 2023-02-19 00:00:00 Outpatient JEANETTE CHATMAN [id number] [facility] 2023-01-11 00:00:00 2023-01-11 00:00:00 Outpatient JEANETTE CHATMAN [id number] [facility] 2022-10-16 00:00:00 2022-10-16 00:00:00 Outpatient DMG DMG [id number] [facility] 2022-04-21 00:00:00 2022-04-21 00:00:00 Outpatient JEANETTE CHATMAN KIMMY [id number] Kimmy cristianrupinder 2022-03-01 00:00:00 2022-03-01 00:00:00 Outpatient JEANETTE CHATMAN KIMMY [id number] Kimmy cristianrupinder 2022-02-27 00:00:00 2022-02-27 00:00:00 Outpatient JEANETTE CHATMANANTHONY ALEJO [id number] Kimmy devendra 2022-02-16 10:35:00 2022-02-16 10:35:00 Outpatient LAB90 KIMMY KIMMY [id number] Kimmy cristianrupinder 2022-02-16 09:30:00 2022-02-16 10:15:00 Office Visit Jeanette Chatman [id number] Kimmy devendra 2022-01-19 15:45:00 2022-01-19 16:15:00 Office Visit Jeanette Chatman [id number] Kimmy Zayas 2021-09-14 00:00:00 2021-09-14 00:00:00 Outpatient GROUP, KIMMY ALEJO [id number] Kimmy Zayas Results Test Description Test Time Test Comments Results Result Co mments Source
[2024-09-01] MEDS ORDERED: NA CHLORIDE 0.9% 1,000 ML ONE (14:13)
[2024-09-01] MEDS ORDERED: MORPHINE 4 MG/ML SYR ONE (14:13)
[2024-09-01] MEDS ORDERED: ONDANSETRON 4 MG/2 ML VIAL ONE (14:13)
[2024-09-01 14:38] LABS: Specific Gravity 1.018 (1.005-1.030); Sqamous Epithelial <5 /HPF (None Seen); Urine Bacteria None Seen /HPF (<20); Urine Bilirubin NEGATIVE (Negative); Urine Blood Trace (Negative); Urine Clarity Turbid (Clear); Urine Color Yellow (Yellow); Urine Culture Reflex Order NOT NEEDED; Urine Glucose NEGATIVE (Negative); Urine Ketones NEGATIVE (Negative); Urine Microscopic Reflex YN ORDER UMIC; Urine Mucus 2+ /HPF (None Seen); Urine Nitrite NEGATIVE (Negative); Urine Protein TRACE (Negative); Urine RBC <5 /HPF (None Seen); Urine Urobilinogen Normal (Normal); Urine WBC <5 /HPF (<5)
[2024-09-01 14:39] LABS: Absolute Basophils 0.1 K/uL (0-0.5); Absolute Lymphocytes (CBC) 1.3 K/uL (0.7-4.9); Absolute Monocytes 1.4 K/uL (0.1-1.3); Absolute Neutrophil 11.1 K/uL (1.8-8.0); Basophils % 0.4 % (0-1.3); Eosinophils % 0.1 % (0-4.4); Hematocrit 36.6 % (36.0-45.0); Hemoglobin 12.2 g/dL (12.0-15.0); Lymphocytes % 9.4 % (15.3-44.8); MCH 29.3 pg (27.0-35.0); MCHC 33.3 g/dL (32.0-36.0); MCV 87.9 fL (80-100); MPV 8.7 fL (7.6-11.3); Monocytes % 9.9 % (3.3-12.3); Neutrophils % 80.2 % (41.7-73.7); Platelets 273 thou/uL (152-406); RBC Red Blood Cell Count 4.17 M/uL (3.86-4.86); Red Cell Distribution Width 13.5 % (12.1-15.2)
[2024-09-01 14:58] LABS: Albumin 3.3 g/dL (3.4-5.0); Albumin/Globulin Ratio 0.8 (1.1-1.8); Alkaline Phosphatase 82 U/L (45-117); Anion Gap 8.1 mEq/L (5.0-15.0); BUN Blood Urea Nitrogen 10 mg/dL (7-18); Bicarbonate 28 mEq/L (21-32); Bilirubin Total 0.9 mg/dL (0.2-1.0); Globulin 4.1 g/dL (2.3-3.5); Glomerular Filtration Rate 74 ml/min (=/>90); Glucose Level 111 mg/dL (74-106); Lipase 16 U/L (13-75); Potassium 4.1 mEq/L (3.5-5.1); Protein, Total 7.4 g/dL (6.4-8.2); Sodium Level 131 mEq/L (136-145)
[2024-09-01 15:00] LABS: ALT/SGPT < 14 U/L (13-56); AST/SGOT < 10 U/L (15-37)
--- NOTE | 2024-09-01 15:34 | RAD REPORT ---
EXAMINATION: CT ABDOMEN AND PELVIS WITH CONTRAST CLINICAL INDICATION: Female, 78 years old.ABD PAIN TECHNIQUE: CT abdomen and pelvis was performed, after the administration of IV [facility] Axial, sagittal and coronal reconstructions were obtained. One or more of the following dose reduction techniques were used: Automated exposure control, adjustment of the mA and/o r kV according to patient size, and/or iterative reconstruction. Unless otherwise specified, incidental findings do not require dedicated imaging follow-up. [id number]. COMPARISON: No prior exam. FINDINGS: LOWER CHEST: The visualized lung bases are clear. LIVER: Normal in size and contour. No focal lesion. GALLBLADDER/BILE DUCT: No biliary ductal dilatation.?Cholecystectomy PANCREAS: No significant abnormality. SPLEEN: Normal size. No focal lesion. ADRENALS: Normal; no mass. KIDNEYS AND URETERS: Normal size and contour. No hydronephrosis. GASTROINTESTINAL TRACT: Nonperforated diverticulitis of the proximal to mid sigmoid colon. No bowel o bstruction. No appendicitis. PERITONEUM: No ascites. LYMPH NODES: No lymphadenopathy. ABDOMINAL AORTA AND OTHER VESSELS: Normal caliber aorta and IVC. Mild atherosclerotic changes. URINARY BLADDER: Normal contour. REPRODUCTIVE ORGANS: No pathologic process MUSCULOSKELETAL: No acute or suspicious osseous abnormality. Multilevel degenerative changes are pres ent in the spine. ADDITIONAL FINDINGS: None. IMPRESSION: Nonperforated sigmoid diverticulitis. No abscess or bowel obstruction..
[2024-09-01] MEDS ORDERED: Ciprofloxacin 200mg IV 400 MG/200 ML IV.SOLN. IV ONE (16:11)
[2024-09-01] MEDS ORDERED: METRONIDAZOLE 500mg IVPB 500 MG/100 ML BAG IV ONE (16:11)
--- NOTE | 2024-09-01 16:41 | ER ---
Nurse's Notes [facility] Name: Stefany Guillen Age: 78 yrs Sex: Female : 1945 Arrival Date: 09/01/2024 Time: 12:51 Bed 5 Private MD: Diagnosis: Diverticulitis of large intestine without perforation or abscess without bleeding Presentation: 09/01 13:44 Chief complaint: Patient states: Left sided abdominal pain onset Sunday. Pt reports cm10 nausea and constipation. Pt was sent to the ED from urgent care. Pt has a history of diverticulitis. Coronavirus screen: Client denies travel out of the [place] in the last 14 days. Ebola Screen: Patient denies travel to an Ebola-affected area in the 21 days before illness onset. No symptoms or risks identified at this time. Initial Sepsis Screen: Does the patient meet any 2 criteria? No. Patient's initial sepsis screen is negative. Does the patient have a suspected source of infection? No. Patient's initial sepsis screen is negative. Risk Assessment: Do you want to hurt yourself or someone else? Patient reports no desire to harm self or others. Onset of symptoms was August 30, 2024. 13:44 Method Of Arrival: Ambulatory cm10 13:44 Acuity: HARJINDER 3 cm10 Triage Assessment: 13:48 General: Appears in no apparent distress. uncomfortable, Behavior is calm, cooperative. cm10 Pain: Complains of pain in abdomen. Neuro: No deficits noted. Level of Consciousness is awake, alert, obeys commands, Oriented to person, place, time, situation, Appropriate for age. Respiratory: No deficits noted. Airway is patent Respiratory effort is even, unlabored, Respiratory pattern is regular, symmetrical. GI: Reports lower abdominal pain, constipation, nausea. Historical: - Allergies: 13:47 Amoxicillin; cm10 13:47 Sulfa (Sulfonamide Antibiotics); cm10 - PMHx: 13:47 Diverticulitis; Hypertensive disorder; cm10 13:49 Hernia; cm10 - PSHx: 13:49 Cholecystectomy; cm10 13:50 Total abdominal hysterectomy; cm10 - Immunization history:: Adult Immunizations up to date. - Infectious Disease History:: Denies. - Social history:: Smoking status: Patient denies any tobacco usage or history of. Screenin:50 [facility] ED Fall Risk Assessment (Adult) History of falling in the last 3 months, rs5 including since admission No falls in past 3 months (0 pts) Confusion or Disorientation No (0 pts) Intoxicated or Sedated No (0 pts) Impaired Gait No (0 pts) Mobility Assist Device Used No (0 pt) Altered Elimination No (0 pt) Score/Fall Risk Level 0 - 2 = Low Risk Oriented to surroundings, Maintained a safe environment. Abuse screen: Denies threats or abuse. Nutritional screening: No deficits noted. Tuberculosis screening: No symptoms or risk factors identified. Assessment: 13:50 General: Appears in no apparent distress. uncomfortable, Behavior is calm, cooperative. rs5 Pain: Complains of pain in abdomen Pain currently is 8 out of 10 on a pain scale. Quality of pain is described as aching, Is continuous. Neuro: Level of Consciousness is awake, alert, obeys commands, Oriented to person, place, time, situation. Cardiovascular: Patient's skin is warm and dry. Respiratory: Airway is patent Respiratory effort is even, unlabored, Respiratory pattern is regular, symmetrical. GI: Abdomen is round non-distended, Abd is soft and non tender X 4 quads. : No signs and/or symptoms were reported regarding the genitourinary system. EENT: No signs and/or symptoms were reported regarding the EENT system. Derm: Skin is intact, Skin is pink, warm \T\ dry. Musculoskeletal: Range of motion: intact in all extremities. 14:32 Reassessment: Patient and/or family updated on plan of care and expected duration. Pain rs5 level reassessed. Patient is alert, oriented x 3, equal unlabored respirations, skin warm/dry/pink. 15:41 Reassessment: Patient and/or family updated on plan of care and expected duration. Pain rs5 level reassessed. Patient is alert, oriented x 3, equal unlabored respirations, skin warm/dry/pink. Patient states feeling better. 16:52 Reassessment: No changes from previously documented assessment. rs5 16:56 Reassessment: pt up for discharge, awaiting abx to finish prior to discharge, charge rs5 nurse notified . Vital Signs: 13:44 BP 155 / 63; Pulse 74; Resp 16; Temp 99.6; Pulse Ox 98% on R/A; Weight 84.6 kg; Height cm10 5 ft. 1 in. ; Pain 5/10; 15:01 BP 141 / 71; Pulse 70; Resp 17; Temp 98(O); Pulse Ox 99% on R/A; rs5 16:52 BP 144 / 75; Pulse 72; Resp 17; Pulse Ox 98% on R/A; rs5 13:44 Body Mass Index 35.24 (84.60 kg, 154.94 cm) cm10 13:44 Pain Scale: Adult cm10 ED Course: 12:55 Patient arrived in ED. ra3 12:57 Alma Wise PA-C is PHCP. sb4 12:57 Oc Philippe MD is Attending Physician. sb4 13:47 Triage completed. cm10 13:48 Arm band placed on Patient placed in waiting room. cm10 13:50 Patient has correct armband on for positive identification. Placed in gown. Bed in low rs5 position. Call light in reach. Side rails up X2. 14:20 Inserted saline lock: 20 gauge in right antecubital area, using aseptic technique. rs5 Blood collected. Flushed with 10 mL NS. 14:20 No provider procedures requiring assistance completed. rs5 14:30 Evelio Mar, RN is Primary Nurse. rs5 15:18 CT Abd/Pelvis - IV Contrast Only In Process Unspecified. EDMS 16:40 Collin Solis MD is Referral Physician. sb4 17:17 Provided Education on: follow up, medications. hb 17:17 IV discontinued, intact, bleeding controlled, No redness/swelling at site. Pressure hb dressing applied. Administered Medications: 14:30 Drug: morphine IVP or IV 4 mg IVP once over 4 mins Route: IVP; Infused Over: 4 mins; rs5 Site: right antecubital; 15:01 Follow up: Response: No adverse reaction; Pain is decreased rs5 14:30 Drug: Ondansetron IVP 4 mg IVP once; over 2 minutes Route: IVP; Site: right antecubital;rs5 15:01 Follow up: Response: No adverse reaction rs5 14:30 Drug: NS 0.9% IV 1000 ml IV at 1 bolus Per protocol; 1000 mL bolus Route: IV; Rate: 1 rs5 bolus; Site: right antecubital; 15:01 Follow up: Response: No adverse reaction rs5 15:35 Follow up: IV Status: Completed infusion; IV Intake: 1000ml rs5 16:00 Drug: Ciprofloxacin IVPB 400 mg 200 ml IVPB once over 60 mins Volume: 200 ml; Route: rs5 IVPB; Infused Over: 60 mins; Site: right antecubital; 16:20 Follow up: Response: No adverse reaction rs5 17:17 Follow up: Response: No adverse reaction; IV Status: Completed infusion; IV Intake: hb 200ml 16:00 Drug: metroNIDAZOLE IVPB 500 mg 100 ml IVPB at 200 ml/hr once over 30 mins Volume: 100 rs5 ml; Route: IVPB; Rate: 200 ml/hr; Infused Over: 30 mins; Site: right antecubital; 16:20 Follow up: Response: No adverse reaction rs5 17:17 Follow up: Response: No adverse reaction; IV Status: Completed infusion; IV Intake: hb 100ml Medication: 14:33 VIS not applicable for this client. rs5 Intake: 15:35 IV: 1000ml; Total: 1000ml. rs5 17:17 IV: 100ml; Total: 1100ml. hb 17:17 IV: 200ml; Total: 1300ml. hb Outcome: 16:40 Discharge ordered by . sb4 17:17 Discharged to home ambulatory, with significant other, hb 17:17 Condition: stable 17:17 Discharge instructions given to patient, Instructed on discharge instructions, follow up and referral plans. medication usage, Demonstrated understanding of instructions, follow-up care, medications, Prescriptions given X 2, 17:18 Patient left the ED. hb Signatures: Dispatcher [employer] EDMS Debora Solorio RN RN Alma Chandler PA-C PA-C sb4 Evelio Mar RN RN rs5 Soumya Palmer RN RN cm10 Terrie Bailey ra3 Corrections: (The following items were deleted from the chart) 16:33 16:20 metroNIDAZOLE IVPB 500 mg 100 ml IVPB at 200 ml/hr in right antecubital over 30 rs5 mins rs5 16:52 16:52 BP 141 / 71; Pulse 70bpm; Resp 17bpm; Pulse Ox 99% RA; Temp 98F Oral; rs5 rs5 17:18 17:17 IV discontinued, intact, bleeding controlled, No redness/swelling at site. hb hb
--- NOTE | 2024-09-01 16:41 | EDPHYS ---
Physician Documentation [facility] Name: Stefany Guillen Age: 78 yrs Sex: Female : 1945 Arrival Date: 09/01/2024 Time: 12:51 Bed 5 Private MD: ED Physician Oc Philippe HPI: 09/01 13:54 This 78 yrs old Female presents to ER via Ambulatory with complaints of abdominal pain. sb4 13:55 The patient presents with abdominal pain in the lower abdomen, in the left lower sb4 quadrant. Onset: The symptoms/episode began/occurred Onset: The symptoms/episode began/occurred 2 day(s) ago. 13:55 The symptoms do not radiate. Associated signs and symptoms: Pertinent positives: sb4 constipation, fever, nausea. The symptoms are described as sharp. Modifying factors: The symptoms are alleviated by nothing, the symptoms are aggravated by nothing. The patient has experienced similar episodes in the past, a few times, today's symptoms are similar, to when the patient was apparently diagnosed with diverticulitis. The patient has been recently seen at an urgent care, just prior to arrival, for similar complaints, and was sent to the [facility] Emergency Department for further evaluation. Historical: - Allergies: 13:47 Amoxicillin; cm10 13:47 Sulfa (Sulfonamide Antibiotics); cm10 - PMHx: 13:47 Diverticulitis; Hypertensive disorder; cm10 13:49 Hernia; cm10 - PSHx: 13:49 Cholecystectomy; cm10 13:50 Total abdominal hysterectomy; cm10 - Immunization history:: Adult Immunizations up to date. - Infectious Disease History:: Denies. - Social history:: Smoking status: Patient denies any tobacco usage or history of. ROS: 13:55 Constitutional: Positive for fever, sb4 13:55 Abdomen/GI: Positive for abdominal pain, constipation, 13:55 All other systems are negative, 16:40 Cardiovascular: Negative for chest pain, palpitations, and edema, sb4 Exam: 13:55 Constitutional: This is a well developed, well nourished patient who is awake, alert, sb4 and in no acute distress. Head/Face: Normocephalic, atraumatic. Eyes: Extra-ocular motions intact. Periorbital areas with no swelling, redness, or edema. ENT: Mucous membranes moist. Cardiovascular: Regular rate and rhythm with a normal S1 and S2. Respiratory: Lungs have equal breath sounds bilaterally, clear to auscultation and percussion. No rales, rhonchi or wheezes noted. No increased work of breathing, no retractions or nasal flaring. Skin: Warm, dry with normal turgor. Normal color with no rashes, no lesions, and no evidence of cellulitis. 13:55 Abdomen/GI: Inspection: abdomen appears normal, Bowel sounds: normal, Palpation: soft, mild abdominal tenderness, in the suprapubic area and left lower quadrant, Vital Signs: 13:44 BP 155 / 63; Pulse 74; Resp 16; Temp 99.6; Pulse Ox 98% on R/A; Weight 84.6 kg; Height cm10 5 ft. 1 in. ; Pain 5/10; 15:01 BP 141 / 71; Pulse 70; Resp 17; Temp 98(O); Pulse Ox 99% on R/A; rs5 16:52 BP 144 / 75; Pulse 72; Resp 17; Pulse Ox 98% on R/A; rs5 13:44 Body Mass Index 35.24 (84.60 kg, 154.94 cm) cm10 13:44 Pain Scale: Adult cm10 MDM: 13:07 Patient medically screened. sb4 16:39 Data reviewed: vital signs, nurses notes, lab test result(s), radiologic studies, and sb4 as a result, I will discharge patient. Counseling: I had a detailed discussion with the patient and/or guardian regarding the historical points, exam findings, and any diagnostic results supporting the discharge/admit diagnosis, the presence of at least one elevated blood pressure reading (>120/80) during this emergency department visit, lab results, radiology results, the need for outpatient follow up, a inventory worker, to return to the emergency department if symptoms worsen or persist or if there are any questions or concerns that arise at home. 09/01 13:49 Order name: CBC with Diff; Complete Time: 14:40 cm10 09/01 13:49 Order name: CMP; Complete Time: 15:02 cm10 09/01 13:49 Order name: Lipase; Complete Time: 15:02 cm10 09/01 13:49 Order name: Urinalysis w/ reflexes; Complete Time: 14:40 cm10 09/01 13:49 Order name: CT Abd/Pelvis - IV Contrast Only; Complete Time: 15:35 cm10 09/01 13:49 Order name: IV Saline Lock; Complete Time: 14:30 cm10 09/01 13:49 Order name: Labs collected and sent; Complete Time: 14:30 cm10 Administered Medications: 14:30 Drug: morphine IVP or IV 4 mg IVP once over 4 mins Route: IVP; Infused Over: 4 mins; rs5 Site: right antecubital; 15:01 Follow up: Response: No adverse reaction; Pain is decreased rs5 14:30 Drug: Ondansetron IVP 4 mg IVP once; over 2 minutes Route: IVP; Site: right antecubital;rs5 15:01 Follow up: Response: No adverse reaction rs5 14:30 Drug: NS 0.9% IV 1000 ml IV at 1 bolus Per protocol; 1000 mL bolus Route: IV; Rate: 1 rs5 bolus; Site: right antecubital; 15:01 Follow up: Response: No adverse reaction rs5 15:35 Follow up: IV Status: Completed infusion; IV Intake: 1000ml rs5 16:00 Drug: Ciprofloxacin IVPB 400 mg 200 ml IVPB once over 60 mins Volume: 200 ml; Route: rs5 IVPB; Infused Over: 60 mins; Site: right antecubital; 16:20 Follow up: Response: No adverse reaction rs5 17:17 Follow up: Response: No adverse reaction; IV Status: Completed infusion; IV Intake: hb 200ml 16:00 Drug: metroNIDAZOLE IVPB 500 mg 100 ml IVPB at 200 ml/hr once over 30 mins Volume: 100 rs5 ml; Route: IVPB; Rate: 200 ml/hr; Infused Over: 30 mins; Site: right antecubital; 16:20 Follow up: Response: No adverse reaction rs5 17:17 Follow up: Response: No adverse reaction; IV Status: Completed infusion; IV Intake: hb 100ml Disposition Summary: 09/01/24 16:40 Discharge Ordered Notes: Location: Home sb4 Problem: an acute exacerbation sb4 Symptoms: have improved sb4 Condition: Stable sb4 Diagnosis - Diverticulitis of large intestine without perforation or abscess without bleeding sb4 Followup: sb4 - With: Collin Solis MD - When: 10 - 14 days - Reason: Further diagnostic work-up, Recheck today's complaints, Re-evaluation by your physician Discharge Instructions: - Discharge Summary Sheet sb4 - High-Fiber Eating Plan sb4 - Diverticulitis, [id number] sb4 Forms: - Antibiotic Education sb4 - Patient Portal Instructions sb4 - Leadership Thank You Letter sb4 Prescriptions: - Flagyl 500 mg Oral tablet - take 1 tablet ORAL route every 8 hours for 7 days; 21 tablet; Refills: 0, sb4 Product Selection Permitted - Cipro 500 mg Oral Tablet - take 1 tablet ORAL route every 12 hours for 7 days; 14 tablet; Refills: 0, sb4 Product Selection Permitted Signatures: Dispatcher [employer] Alma White PA-C PA-C sb4 Evelio Mar RN RN rs5 Soumya Palmer RN RN cm10 Debora Solorio RN Corrections: (The following items were deleted from the chart) 13:56 13:55 Onset: The symptoms/episode began/occurred sb4 sb4
[2024-09-01 17:23] VITALS: TEMP 98
[2024-09-01 17:24] VITALS: BP 144/75; O2SAT 98
== END 2024-09-01 17:18 | disposition home or self-care (01) ==
LOC: ER 12:51
DX: K57.32 Diverticulitis of large intestine without perforation or abscess without bleeding (principal); I10 Essential (primary) hypertension
CPT/HCPCS: 96365; 96361; 96368; 85025; 81001; 36415; 83690; 80053; 74177; 96375; 99284; Q9967; J0744; J2405; J7030

== ENCOUNTER 2024-12-19 10:59 | Emergency (ER) | payer MEDICARE, OTHER ==
--- OUTSIDE RECORDS SUMMARY | 2024-12-19 11:03 | XMS REPORT | Continuity of Care Document ---
Author Name Unknown Address [address] [place] [address] [facility] thconnect Address [address] [place] [address] Care Team Providers Care Cnc Manufacturing Engineer Name Role Phone Compa TRAN, Jeanette Orozco Primary Care Physician Kriss Carrizales Attending Clinician Unavailable JEANETTE CHATMAN Attending Clinician Dari ilable LAB90 Attending Clinician Unavailable Jeanette Chatman MD Attending Clinician [phone] [facility] Attending Clinicia n Unavailable Payers Payer Name Policy Type Policy Number Effective Date Expirati on Date Source MEDICARE-PART B 5 [id number] 2021 00:00:00 [employer] 2 [id number] 2022 00:00:00 [facility] [employer] (MEDICARE REPLACEMENT HMO) [id number] 2022 00:00:00 Problems [...] Disease Active 02-16 00:00: 00 Kimmy Zayas [id number] Current mild episode of major depressive disorder without prior episode Problem [facility] [id number] Primary hypertensi on Problem [facility] [id number] Environmen vega allergies Problem [facility] [id number] Gastroesop hageal reflux disease with esophagiti s without hemorrhage Problem [facility] [id number] Acquired hypothyroi dism Problem [facility] [id number] Hx of diverticul itis of colon Problem [facility] [id number] Prediabete s Problem [facility] [id number] Migraine without aura and without status migrainosu s, not intractabl e Problem [facility] Comprehens crissy eye examinatio n (procedure ) Routine eye exam Problem [facility] [id number] Osteoporos is, postmenopa usal Problem [facility] [id number] Moderate mixed hyperlipid emia not requiring statin therapy Problem [facility] No known active problems No known active problems Disease Kimmy Zayas Social History Social Habit Start Date Stop Date Quantity Comments Source History of Tobacco Use [facility] Sex Assigned At [facility] Alcohol intake 2022-02-16 00:00:00 2022-02-16 00:00:00 Current drinker of alcohol (finding) Kimmy Zayas Tobacco use and exposure 2021-03-14 00:00:00 2021-03-14 00:00:00 Smokeless tobacco non-user Kimmy Zayas Smoking Status Start Date Stop Date Source Never Smoker [facility] Medications Ordered Medication Name Filled Medication Name [...] Take 1 capsule by mouth daily Kimmy Zhangcristianrupinder DiphenhydrA MINE (Benadryl Allergy) 25 MG oral capsule 224 15:47: 36 Yes 25mg Q6H Take 25 mg by mouth every 6 hours as needed for itching Kimmy Zayas Lutein 20 MG oral Capsule 224 15:47: 36 Yes 1{capsu le} Take 1 capsule by mouth daily Kimmy Zayas Escitalopra m Oxalate 10 MG oral Tablet 01-19 00:00: 00 Yes [id number] 10mg Take 1 tablet (10 mg total) by mouth daily Kimmy Zayas Lansoprazol e 30 MG oral Delayed Release Capsule 01-19 00:00: 00 Yes [id number] 30mg Take 1 capsule (30 mg total) by mouth daily Kimmy Zayas Metformin HCl ER 500 MG oral TABLET SR 24 HR 01-19 00:00: 00 Yes [id number] 500mg Take 1 tablet (500 mg total) by mouth daily (with breakfast) Kimmy Zayas Metformin HCl ER 500 MG oral TABLET SR 24 HR 2020-11 1-04 00:00: 00 01-19 00:00 :00 No 500mg Take 1 tablet (500 mg total) by mouth daily (with breakfast) Kimmy Zaays Irbesartan 150 MG oral Tablet 8-31 00:00: 00 Yes 150mg Take 1 tablet [...] le 30 MG Vitamin D3 50 MCG (2000 UT) Vitamin D3 50 MCG (2000 UT) No 1{table t} QD Vitamin D3 50 MCG (2000 UT) Magnesium 400 MG Magnesium 400 MG No Magnesium 400 MG Immunizations Ordered Immunization Name Filled Immunization Name Date Status Comments Source Tdap- (Boostrix, Adacel) 2018-09-05 00:00:00 Completed Kimmy Zayas Influenza Virus Vaccine, age 6 months and up 2018-09-05 00:00:00 Completed Kimmy Zayas Tdap- (Boostrix, Adacel) 2018-09-05 00:00:00 Completed Kimmy Zayas Influenza Virus Vaccine, age 6 months and up 2018-09-05 00:00:00 Completed Kimmy Zayas Prevnar 20 (PCV20) Prevnar 20 (PCV20) Unknown Completed [facility] Prevnar 20 (PCV20) Prevnar 20 (PCV20) Unknown Completed [facility] Prevnar 20 (PCV20) Prevnar 20 (PCV20) Unknown Completed [facility] Prevnar 20 (PCV20) Prevnar 20 (PCV20) Unknown Completed [facility] Prevnar 20 (PCV20) Prevnar 20 (PCV20) Unknown Completed [facility] Prevnar 20 (PCV20) Prevnar 20 (PCV20) Unknown Completed [facility] Prevnar 20 (PCV20) Prevnar 20 (PCV20) Unknown Completed [facility] Prevnar 20 (PCV20) Prevnar 20 (PCV20) Unknown Completed [facility] Prevnar 20 (PCV20) Prevnar 20 (PCV20) Unknown Completed [facility] Prevnar 20 (PCV20) Prevnar 20 (PCV20) Unknown Completed [facility] Prevnar 20 (PCV20) Prevnar 20 (PCV20) Unknown Completed [facility] Prevnar 20 (PCV20) Prevnar 20 (PCV20) Unknown Completed [facility] Fluad (IIV) - SDS - 0.5mL Fluad (IIV) - SDS - 0.5mL Unknown Completed [facility] Prevnar 20 (PCV20) Prevnar 20 (PCV20) Unknown Completed [facility] Prevnar 20 (PCV20) Prevnar 20 (PCV20) Unknown Completed [facility] Prevnar 20 (PCV20) Prevnar 20 (PCV20) Unknown Completed [facility] Vital Signs Vital Name Observation Time Observation Value Comments S ource height 2024-09-15 15:00:00 61.3 [in_i] Comm on [facility] weight 2024-09-15 15:00:00 186.6 [lb_av] Co mmon [facility] temperature 2024-09-15 15:00:00 96.6 [degF] Com mon [facility] bmi 2024-09-15 15:00:00 34.91 kg/m2 Comm on [facility] oximetry 2024-09-15 15:00:00 100 % Commo n [facility] respiratory rate 2024-09-15 15:00:00 16 /min [facility] blood pressure systolic 2024-09-15 15:00:00 135 mm[Hg] [facility] blood pressure diastolic 2024-09-15 15:00:00 72 mm[Hg] [facility] height 2024-06-05 13:00:00 61.3 [in_i] Comm on [facility] weight 2024-06-05 13:00:00 184.0 [lb_av] Co [facility] temperature 2024-06-05 13:00:00 96.8 [degF] Com mon [facility] bmi 2024-06-05 13:00:00 34.42 kg/m2 Comm on [facility] oximetry 2024-06-05 13:00:00 95 % Commo n [facility] respiratory rate 2024-06-05 13:00:00 16 /min [facility] height 2024-04-14 15:20:00 61.3 [in_i] Comm on [facility] weight 2024-04-14 15:20:00 184.0 [facility]lb_[facility] 2024-04-14 15:20:00 97.2 [degF] Com [facility] bmi 2024-04-14 15:20:00 34.42 kg/m2 Comm on [facility] oximetry 2024-04-14 15:20:00 97 % Commo n [facility] respiratory rate 2024-04-14 15:20:00 16 /min [facility] blood pressure systolic 2024-04-14 15:20:00 134 mm[Hg] [facility] blood pressure diastolic 2024-04-14 15:20:00 65 mm[Hg] Common [facility] height 2024-04-14 15:20:00 61.3 [in_i] Comm on [facility] weight 2024-04-14 15:20:00 184.0 [lb_av] Co mmon [facility] temperature 2024-04-14 15:20:00 97.2 [degF] Com mon [facility] bmi 2024-04-14 15:20:00 34.42 kg/m2 Comm on [facility] oximetry 2024-04-14 15:20:00 97 % Commo n [facility] respiratory rate 2024-04-14 15:20:00 16 /min Common [facility] blood pressure systolic 2024-04-14 15:20:00 134 mm[Hg] Common [facility] blood pressure diastolic 2024-04-14 15:20:00 65 mm[Hg] [facility] height 2023-09-26 14:40:00 61.3 [in_i] Comm on [facility] weight 2023-09-26 14:40:00 180.2 [lb_av] Co mmon [facility] temperature 2023-09-26 14:40:00 97.2 [degF] Com mon [facility] bmi 2023-09-26 14:40:00 33.71 kg/m2 Comm on [facility] oximetry 2023-09-26 14:40:00 98 % Commo n [facility] respiratory rate 2023-09-26 14:40:00 16 /min Common [facility] blood pressure systolic 2023-09-26 14:40:00 132 mm[Hg[facility] blood pressure diastolic 2023-09-26 14:40:00 84 mm[Hg] Common [facility] height 2023-04-16 11:00:00 61.3 [in_i] Comm on [facility] weight 2023-04-16 11:00:00 181.4 [lb_av] Co mmon [facility] temperature 2023-04-16 11:00:00 98.1 [degF] Com mon [facility] bmi 2023-04-16 11:00:00 33.94 kg/m2 Comm on [facility] oximetry 2023-04-16 11:00:00 97 % Commo n [facility] respiratory rate 2023-04-16 11:00:00 17 /min [facility] blood pressure systolic 2023-04-16 11:00:00 138 mm[Hg] Common [facility] blood pressure diastolic 2023-04-16 11:00:00 68 mm[Hg] [facility] height 2023-04-16 11:40:00 61.3 [in_i] Comm on [facility] weight 2023-04-16 11:40:00 181.4 [lb_av] Co mmon [facility] temperature 2023-04-16 11:40:00 98.1 [degF] Com mon [facility] bmi 2023-04-16 11:40:00 33.94 kg/m2 Comm on [facility] oximetry 2023-04-16 11:40:00 97 % Commo n [facility] respiratory rate 2023-04-16 11:40:00 17 /min Common [facility] blood pressure systolic 2023-04-16 11:40:00 138 mm[Hg] [facility] blood pressure diastolic 2023-04-16 11:40:00 68 mm[Hg] Common [facility] Systolic blood pressure 2022-02-16 14:30:00 138 mm[Hg] Kimmy nunez Diastolic blood pressure 2022-02-16 14:30:00 62 mm[Hg] Kimmy nunez Heart rate 2022-02-16 14:30:00 71 /min Kelse y Seybold Body temperature 2022-02-16 14:30:00 36.17 Janice Kimmy Seybold Respiratory rate 2022-02-16 14:30:00 16 /min Kimmy Seybold Body height 2022-02-16 14:30:00 157.5 cm Bel ey Seybold Body weight 2022-02-16 14:30:00 87.091 kg Bel ey Seybold BMI 2022-02-16 14:30:00 35.12 kg/m2 Bel ey Seybold Systolic blood pressure 2022-01-19 21:43:00 136 mm[Hg] Kimmy Seybo ld Diastolic blood pressure 2022-01-19 21:43:00 72 mm[Hg] Kimmy Seybo ld Heart rate 2022-01-19 21:43:00 73 /min Kelse y Seybold Body temperature 2022-01-19 21:43:00 36.56 Janice Kimmy Seybold Respiratory rate 2022-01-19 21:43:00 14 /min Kimmy Seybold Body height 2022-01-19 21:43:00 157.5 cm Bel ey Seybold Body weight 2022-01-19 21:43:00 85.276 kg Bel ey Seybold BMI 2022-01-19 21:43:00 34.39 kg/m2 Bel ey Seybold Encounters Start Date/Time End Date/Time Encounter Type Admission Type Attending [facility] Care Department Encounter ID Source 2024-09-11 09:39:00 [facility] [id number] [facility] 2024-08-14 10:00:00 Outpatient [facility]riss [facility] [id number] [facility] 2024-06-05 08:51:00 Outpatient SofieKriss [facility] [id number] [facility] 2024-04-10 09:13:00 Outpatient [facility]riss cloud [facility] [id number] [facility] 2024-02-11 13:17:00 Outpatient Kriss Carrizales [facility] [id number] [facility] 2023-09-26 07:40:00 Outpatient Kriss Carrizales [facility] [id number] [facility] 2023-08-09 08:03:00 Outpatient Kriss Carrizales [facility] [id number] [facility] 2023-04-16 10:54:13 Outpatient Kriss Carrizales [facility] [id number] [facility] 2024-09-15 00:00:00 2024-09-15 00:00:00 OFFICE VISIT ESTAB PT LEVEL 4 [facility] [id number] [facility] 2024-09-01 00:00:00 2024-09-01 00:00:00 (TEL) [facility]C [facility] [id number] [facility] 2024-08-06 00:00:00 2024-08-06 00:00:00 (TEL) STL[facility]C [facility] [id number] [facility] 2024-08-02 00:00:00 2024-08-02 00:00:00 (TEL) [facility]C [facility] [id number] [facility] 2024-06-19 00:00:00 2024-06-19 00:00:00 (TEL) [facility]C [facility] [id number] [facility] 2024-06-05 00:00:00 2024-06-05 00:00:00 OFFICE VISIT ESTAB PT LEVEL 3 [facility] [id number] [facility] 2024-04-14 00:00:00 2024-04-14 00:00:00 SUB ANNUAL [facility] VISIT [facility] ST[facility] [id number] [facility] 2024-04-14 00:00:00 2024-04-14 00:00:00 OFFICE VISIT ESTAB PT LEVEL 4 [facility] [id number] [facility] 2024-04-04 00:00:00 2024-04-04 00:00:00 (TEL) STLMLC ST[facility] [id number] [facility] 2024-04-04 00:00:00 2024-04-04 00:00:00 (TEL) STLMLC [facility] [id number] [facility] 2024-02-28 00:00:00 2024-02-28 00:00:00 (TEL) STLMLC ST[facility] [id number] [facility] 2024-01-02 00:00:00 2024-01-02 00:00:00 (TEL) STLMLC ST[facility]C [id number] [facility] 2023-12-20 00:00:00 2023-12-20 00:00:00 (TEL) STLMLC STL[facility]C [id number] [facility] 2023-09-26 00:00:00 2023-09-26 00:00:00 OFFICE VISIT ESTAB PT LEVEL 3 [facility]C ST[facility]C [id number] [facility] 2023-09-13 00:00:00 2023-09-13 00:00:00 (TEL) STLMLC STL[facility]C [id number] [facility] 2023-08-13 00:00:00 2023-08-13 00:00:00 (TEL) [facility]C ST[facility] [id number] [facility] 2023-08-02 00:00:00 2023-08-02 00:00:00 (TEL) STL[facility]C ST[facility]C [id number] [facility] 2023-06-19 00:00:00 2023-06-19 00:00:00 Outpatient JEANETTE CHATMAN [id number] Kimmy Zayas 2023-05-16 00:00:00 2023-05-16 00:00:00 (TEL) [facility]C [facility] [id number] [facility] 2023-05-10 00:00:00 2023-05-10 00:00:00 (TEL) [facility]C ST[facility] [id number] [facility] 2023-04-18 00:00:00 2023-04-18 00:00:00 (TEL) STLMLC ST[facility]C [id number] [facility] 2023-04-16 00:00:00 2023-04-16 00:00:00 SUB ANNUAL [facility] VISIT STLMLC STL[facility]C [id number] [facility] 2023-04-16 00:00:00 2023-04-16 00:00:00 OFFICE VISIT ESTAB PT LEVEL 4 [facility] [id number] [facility] 2023-03-30 00:00:00 2023-03-30 00:00:00 Outpatient DMG [facility] [id number] [facility] 2023-02-19 00:00:00 2023-02-19 00:00:00 Outpatient JEANETTE CHATMAN [id number] [facility] 2023-01-11 00:00:00 2023-01-11 00:00:00 Outpatient JEANETTE CHATMAN [id number] [facility] 2022-10-16 00:00:00 2022-10-16 00:00:00 Outpatient DMG DM [id number] [facility] 2022-04-21 00:00:00 2022-04-21 00:00:00 Outpatient JEANETTE CHATMAN [id number] [facility] 2022-03-01 00:00:00 2022-03-01 00:00:00 Outpatient JEANETTE CHATMAN [id number] [facility] 2022-02-27 00:00:00 2022-02-27 00:00:00 Outpatient JEANETTE CHATMAN [id number] [facility] 2022-02-16 10:35:00 2022-02-16 10:35:00 Outpatient LAB90 KIMMY ALEJO [id number] [facility] 2022-02-16 09:30:00 2022-02-16 10:15:00 Office Visit Jeanette Chatman [facility] [id number] Kimmy Zayas 2022-01-19 15:45:00 2022-01-19 16:15:00 Office Visit Jeanette Chatman [place] [id number] Kimmy Zayas 2021-09-14 00:00:00 2021-09-14 00:00:00 Outpatient GROUP, KIMMY ALEJO [id number] Kimmy Zayas Results Test Description Test Time Test Comments Results Result Co mments Source
[2024-12-19] MEDS ORDERED: AZITHROMYCIN 250 MG TAB ONE (12:02)
[2024-12-19] MEDS ORDERED: BENZONATATE 100 MG CAP PO ONE (12:02)
[2024-12-19 12:26] LABS: SARS-CoV-2 Antigen CONTROL BLUE LINE VIS/BG OK; SARS-CoV-2 Antigen Rapid Res Negative (Negative)
--- NOTE | 2024-12-19 12:35 | EDPHYS ---
Physician Documentation [facility] Name: Stefany Guillen Age: 79 yrs Sex: Female : 1945 Arrival Date: 12/19/2024 Time: 10:59 Bed 12 Private MD: ED Physician Ho Osborne HPI: 12/19 12:29 This 79 yrs old Female presents to ER via Ambulatory with complaints of Flu Symptoms. bo1 12:29 Sick for the last 2 days with the pt's sister recently seen in the ER for acute bo1 bronchitis. Pt is coughing and feeling congested and does not wish to be more ill. Onset: The symptoms/episode began/occurred gradually, 2 day(s) ago. Severity of symptoms: At their worst the symptoms were moderate 2 day(s) ago. The sister is on azithromycin PO. Historical: - Allergies: 11:18 Sulfa (Sulfonamide Antibiotics); hb - PMHx: 11:18 Diverticulitis; Hernia; Hypertensive disorder; hb - PSHx: 11:18 Cholecystectomy; Total abdominal hysterectomy; hb - Immunization history:: Adult Immunizations up to date. - Infectious Disease History:: Denies. - Social history:: Smoking status: Patient denies any tobacco usage or history of. ROS: 12:31 Constitutional: Negative for fever, chills, and weight loss bo1 12:31 Cardiovascular: Negative for chest pain, 12:31 Respiratory: Positive for cough, Negative for shortness of breath, sputum production, 12:31 Back: Negative for pain at rest, 12:31 MS/extremity: Negative for pain, swelling, 12:31 Skin: Negative for rash, 12:31 All other systems are negative, Exam: 12:32 Constitutional: This is a well developed, well nourished patient who is awake, alert, bo1 and in no acute distress. 12:32 Constitutional: The patient appears in no acute distress, alert, awake, comfortable, Occasionally coughs 12:32 Eyes: Exam is negative for acute changes, 12:32 ENT: Posterior pharynx: is normal, no acute changes, No exudates, 12:32 Neck: External neck: is normal, no acute changes, 12:32 Cardiovascular: Rate: normal, Rhythm: regular, Pulses: no pulse deficits are appreciated, 12:32 Respiratory: the patient does not display signs of respiratory distress, Respirations: normal, no acute changes, Breath sounds: are clear throughout, 12:32 Musculoskeletal/extremity: DVT Exam: no pain, no swelling, no tenderness, 12:32 Skin: no rash present. Vital Signs: 11:17 BP 126 / 83; Pulse 76; Resp 16; Temp 98; Pulse Ox 98% on R/A; Weight 81.65 kg; Height 5 hb ft. 1 in. ; Pain 4/10; 11:17 Body Mass Index 34.01 (81.65 kg, 154.94 cm) hb 11:17 Pain Scale: Adult hb MDM: 11:17 Medical Screening Exam initiated bo1 12:33 Differential Diagnosis flu, Acute bronchitis (family member exposure). Data reviewed: bo1 vital signs, lab test result(s). 12:33 ED course: Pt is going to be managed as an OP. bo1 12/19 11:17 Order name: Flu; Complete Time: 12:29 [facility] 12/19 11:17 Order name: RSV; Complete Time: 12:29 [facility] 12/19 11:17 Order name: SARS-COV-2 Antigen Rapid; Complete Time: 12:29 [facility] 12/19 11:19 Order name: Strep 12/19 12:29 Order name: Throat Culture EDMS Administered Medications: 12:07 Drug: Tessalon Perle PO 200 mg PO once Route: PO; ap3 12:51 Follow up: Response: No adverse reaction ap3 12:07 Drug: AZITHromycin PO 500 mg PO once Route: PO; ap3 12:51 Follow up: Response: No adverse reaction ap3 Disposition Summary: 12/19/24 12:34 Discharge Ordered Notes: Location: Home bo1 Problem: new bo1 Symptoms: have improved bo1 Condition: Stable bo1 Diagnosis - Cough bo1 - Acute bronchitis, unspecified bo1 Followup: bo1 - With: Private Physician - When: Upon discharge from the Emergency Department - Reason: Recheck today's complaints, Continuance of care Discharge Instructions: - Discharge Summary Sheet bo1 - Acute Bronchitis, Adult bo1 - Cough, Adult bo1 Forms: - Medication Reconciliation Form bo1 - Antibiotic Education bo1 - Prescription Opioid Use bo1 - Patient Portal Instructions bo1 - Leadership Thank You Letter bo1 Prescriptions: - azithromycin 500 mg Oral tablet - take 1 tablet ORAL route daily for 7 days; 7 tablet; Refills: 0, Product bo1 Selection Permitted - Tessalon Perles 100 mg Oral capsule - take 1 capsule ORAL route every 8 hours As needed 200 mg PO Perles instead of bo1 the 100 mg; 30 capsule; Refills: 0, Product Selection Permitted Signatures: Dispatcher [employer] Debora Yin RN RN Viviane Mckeon RN RN ap3 Ho Osborne MD MD bo1 Corrections: (The following items were deleted from the chart) 11:18 Allergies: Amoxicillin; hb hb :18 11:18 Allergies: Sulfa (Sulfonamide Antibiotics); hb hb
--- NOTE | 2024-12-19 12:35 | ER ---
Nurse's Notes [facility] Name: Stefany Guillen Age: 79 yrs Sex: Female : 1945 Arrival Date: 12/19/2024 Time: 10:59 Bed 12 Private MD: Diagnosis: Cough;Acute bronchitis, unspecified Presentation: 12/19 11:17 Chief complaint: Headache, bilateral ear pain, sore throat, and cough since last night. hb Coronavirus screen: Client presents with at least one sign or symptom that may indicate coronavirus-19. Provider contacted for isolation considerations. Ebola Screen: No symptoms or risks identified at this time. Initial Sepsis Screen: Does the patient meet any 2 criteria? No. Patient's initial sepsis screen is negative. Does the patient have a suspected source of infection? No. Patient's initial sepsis screen is negative. Risk Assessment: Do you want to hurt yourself or someone else? Patient reports no desire to harm self or others. Onset of symptoms was December 18, 2024. 11:17 Method Of Arrival: Ambulatory hb 11:17 Acuity: HARJINDER 4 hb Triage Assessment: 11:18 General: Appears in no apparent distress. Behavior is calm, cooperative. Pain: Pain hb currently is 4 out of 10 on a pain scale. Neuro: Level of Consciousness is awake, alert, obeys commands, Oriented to person, place, time, situation. Cardiovascular: Patient's skin is warm and dry. Respiratory: Respiratory effort is even, unlabored, Respiratory pattern is regular, symmetrical. Historical: - Allergies: 11:18 Sulfa (Sulfonamide Antibiotics); hb - PMHx: 11:18 Diverticulitis; Hernia; Hypertensive disorder; hb - PSHx: 11:18 Cholecystectomy; Total abdominal hysterectomy; hb - Immunization history:: Adult Immunizations up to date. - Infectious Disease History:: Denies. - Social history:: Smoking status: Patient denies any tobacco usage or history of. Screenin:26 [facility] ED Fall Risk Assessment (Adult) History of falling in the last 3 months, hb including since admission No falls in past 3 months (0 pts) Confusion or Disorientation No (0 pts) Intoxicated or Sedated No (0 pts) Impaired Gait No (0 pts) Mobility Assist Device Used No (0 pt) Altered Elimination No (0 pt) Score/Fall Risk Level 0 - 2 = Low Risk Oriented to surroundings, Maintained a safe environment, Educated pt \T\ family on fall prevention, incl call for assistance when getting out of bed. Abuse screen: Denies threats or abuse. Denies injuries from another. Nutritional screening: No deficits noted. Tuberculosis screening: No symptoms or risk factors identified. Assessment: 11:26 General: See triage assessment. hb Vital Signs: 11:17 BP 126 / 83; Pulse 76; Resp 16; Temp 98; Pulse Ox 98% on R/A; Weight 81.65 kg; Height 5 hb ft. 1 in. ; Pain 4/10; 11:17 Body Mass Index 34.01 (81.65 kg, 154.94 cm) hb 11:17 Pain Scale: Adult hb ED Course: 11:03 Patient arrived in ED. al6 11:17 Ho Osborne MD is Attending Physician. bo1 11:18 Triage completed. hb 11:18 Arm band placed on. hb 11:26 Patient has correct armband on for positive identification. Provided Education on: hb tests, result times, use of call light. 11:26 COVID swab sent to lab. Flu and/or RSV swab sent to lab. Strep swab sent to lab. hb 11:26 No provider procedures requiring assistance completed. Patient did not have IV access hb during this emergency room visit. Administered Medications: 12:07 Drug: Tessalon Perle PO 200 mg PO once Route: PO; ap3 12:51 Follow up: Response: No adverse reaction ap3 12:07 Drug: AZITHromycin PO 500 mg PO once Route: PO; ap3 12:51 Follow up: Response: No adverse reaction ap3 Medication: 11:26 VIS not applicable for this client. hb Outcome: 12:34 Discharge ordered by . bo1 12:50 Discharged to home ambulatory, ap3 12:50 Condition: good 12:50 Discharge instructions given to patient, Instructed on discharge instructions, follow up and referral plans. medication usage, Demonstrated understanding of instructions, follow-up care, medications, Prescriptions given X 2, 12:51 Patient left the ED. ap3 Signatures: Debora Solorio RN RN hb Viviane Flores RN RN ap3 Ho Osborne MD MD bo1 Darleen Fermin al6 Corrections: (The following items were deleted from the chart) 11:18 11:18 Allergies: Amoxicillin; hb hb 11:18 11:18 Allergies: Sulfa (Sulfonamide Antibiotics); hb hb
[2024-12-19 14:33] VITALS: BP 126/83; TEMP 98; O2SAT 98
== END 2024-12-19 12:51 | disposition home or self-care (01) ==
LOC: ER 10:59
DX: J20.9 Acute bronchitis, unspecified (principal); Z11.52 Encounter for screening for COVID-19
CPT/HCPCS: 36415; 87070; 87081; 87804; 87807; 87811; 99283